=== PATIENT | female | born 1960 | race Two or more races ===

== ENCOUNTER 2022-04-28 14:32 | Outpatient (REF) | payer OTHER, SELFPAY ==
[2022-04-28 15:56] LABS: Thyroid Stimulating Hormone 1.24 uIU/mL (0.32-4.0)
[2022-04-28 16:07] LABS: Erythrocyte Sedimentation Rate 16 MM/HR (0-20)
[2022-04-29 22:28] LABS: Anti Nuclear Antibody Screen NEGATIVE (NEGATIVE)
== END 2022-04-28 14:33 | disposition home or self-care (01) ==
LOC: HO.LAB 14:32
PROVIDERS: Visit Provider Psychiatry & Neurology Neurology
DX: M79.7 Fibromyalgia (principal)
CPT/HCPCS: 36415; 82550; 84443; 85652; 86038; 86039

== ENCOUNTER → 2022-09-10 13:36 | Outpatient (BNVA) | payer OTHER, SELFPAY | PROVIDERS: PCP Internal Medicine; Visit Provider Dietitian, Registered | DX: E11.9 Type 2 diabetes mellitus without complications (principal) | CPT/HCPCS: 97802 ==

== ENCOUNTER → 2023-01-19 14:07 | Outpatient (BNVA) | payer OTHER, SELFPAY | PROVIDERS: PCP Internal Medicine; Visit Provider Dietitian, Registered | DX: E11.9 Type 2 diabetes mellitus without complications (principal) | CPT/HCPCS: 97803 ==

== ENCOUNTER 2024-09-13 13:42 | Outpatient (AMB) | payer OTHER, SELFPAY ==
[2024-09-13 13:59] VITALS: BP 142/82; PULSE 92; O2SAT 96; BMI 26.3
--- NOTE | 2024-09-13 13:59 | A.OFFVIS_ITS ---
Vital Signs 09/13/24 13:59 Height 5 ft Weight 134 lb 8 oz BMI 26.3 BP 142/82 H Blood Pressure Location Lt brachial Position Sitting Pulse 92 Pulse Source Pulse Oximeter Pulse Oximetry (%) 96 Oxygen Delivery Method Room Air Intake Visit Reasons: lupus, arthritis Intake Note: Patient presents for follow up on lupus and arthritis. Allergies acetaminophen [From Percocet] Allergy (Mild, Verified 09/13/24 14:01) Rash naproxen Allergy (Mild, Verified 09/13/24 14:01) bleeding oxycodone [From Percocet] Allergy (Mild, Verified 09/13/24 14:01) Rash HPI HPI lupus, arthritis: Details: She has intermittent pain. A few weeks ago she had increased pain all over. It has subsided and she feels well. She is denying fevers, fatigue, rashes, joint pain, dyspnea, pleurisy, urinary symptoms, joint swelling. [facility] Medical History (Updated 09/14/24 @ 16:00 by Shon Aguayo MD) T2DM (type 2 diabetes mellitus) Review of Systems Const All systems reviewed & are unremarkable except as noted in HPI and below Physical Exam Vital Signs: Last Vital Signs Pulse 92 09/13/24 13:59 BP 142/82 H 09/13/24 13:59 Pulse Ox 96 09/13/24 13:59 Oxygen Delivery Method Room Air 09/13/24 13:59 BMI result Body Mass Index 26.3 Const Other: General: Comfortable CVS: RRR Respiratory: clear to auscultation bilaterally. Good respiratory effort Skin: No lesions seen MSK: No tenderness of any joint. No synovitis. Good range of motion of upper extremities and lower extremities. Assessment & Plan Assessment & Plan (1) Systemic lupus erythematosus: Comment: Controlled on hydroxychloroquine 200 mg daily Code(s): M32.9 - Systemic lupus erythematosus, unspecified Category: Medical Qualifiers: Systemic lupus erythematosus type: unspecified Systemic lupus erythematosus organ involvement: unspecified Qualified Code(s): M32.9 - Systemic lupus erythematosus, unspecified Plan: Labs for disease and drug monitoring ordered Continue hydroxychloroquine 200 mg daily. I am requesting last eye exam for hydroxychloroquine surveillance Requesting [facility] Return to clinic in 3 months Orders: Orders Erythrocyte Sedimentation Rate 09/13/24 M32.9 - Systemic lupus erythematosus, unspecified Alanine Aminotransferase 09/13/24 Z79.60 - nursing home (current) use of unspecified immunomodulators and immunosuppressants Aspartate Amino Transferase 09/13/24 Z79.60 - nursing home (current) use of unspecified immunomodulators and immunosuppressants Complete Blood Count Auto Diff 09/13/24 Z79.60 - supervisor intermediates (current) use of unspecified immunomodulators and immunosuppressants Hepatitis B,C Profile 09/13/24 M32.9 - Systemic lupus erythematosus, unspecified Anti Extractable Nuclear Ag 09/13/24 M32.9 - Systemic lupus erythematosus, unspecified Complement C4 09/13/24 M32.9 - Systemic lupus erythematosus, unspecified UA w Microscopic 09/13/24 M32.9 - Systemic lupus erythematosus, unspecified C Reactive Protein 09/13/24 M32.9 - Systemic lupus erythematosus, unspecified Creatinine 09/13/24 Z79.60 - nursing home (current) use of unspecified immunomodulators and immunosuppressants T Spot TB 09/13/24 M32.9 - Systemic lupus erythematosus, unspecified Anti DNA DS Antibody 09/13/24 M32.9 - Systemic lupus erythematosus, unspecified MARTHA Reflex Titer and Pattern 09/13/24 M32.9 - Systemic lupus erythematosus, unspecified Complement C3 09/13/24 M32.9 - Systemic lupus erythematosus, unspecified Protein Creatinine Ratio, Ur 09/13/24 M32.9 - Systemic lupus erythematosus, unspecified Coding Level of Care Code Est Pt Level 4 (16952) Complex EM visit Add On G2211 Diagnoses Systemic lupus erythematosus, unspecified SLE type, unspecified organ involvement status M32.9 Systemic lupus erythematosus type: unspecified Systemic lupus erythematosus organ involvement: unspecified
== END 2024-09-13 14:45 | disposition home or self-care (01) ==
PROVIDERS: PCP Internal Medicine; Visit Provider Internal Medicine Rheumatology
DX: M32.9 Systemic lupus erythematosus, unspecified (principal)
CPT/HCPCS: 99214; G2211

== ENCOUNTER → 2024-09-13 13:42 | Outpatient (BNVA) | payer OTHER, SELFPAY | PROVIDERS: PCP Internal Medicine; Visit Provider Internal Medicine Rheumatology | DX: M32.9 Systemic lupus erythematosus, unspecified (principal) | CPT/HCPCS: 99212 ==

== ENCOUNTER 2024-09-19 09:27 | Outpatient (REF) | payer OTHER, SELFPAY ==
[2024-09-19 11:16] LABS: Appearance Urine Clear; Color Urine Yellow; Glucose Urine UA >=1000 mg/dL (Negative); Leukocyte Esterase Urine Negative (Negative); Nitrite Urine Negative (Negative); PH 5.5 (5.0-9.0); Specific Gravity - Urine >= 1.030 (1.005-1.025); UMIC TRIGGER UA YES; Urine Blood Negative (Negative); Urine Ketones Negative (Negative); Urine Protein Negative (Neg-Trace)
[2024-09-19 11:19] LABS: Bacteria Urine None Seen (None Seen); Hyaline Casts Urine 0-2 /LPF (0-2); RBC Urine 0-2 /HPF (0-2); Squamous Epithelial Cell Urine 0-2 /HPF (0-2); WBC Urine 0-5 /HPF (0-5)
[2024-09-19 11:33] LABS: MANUAL DIFF FLAG NO
[2024-09-19 11:37] LABS: Basophils Percent Auto 0.2 % (0-2); Eosinophils Absolute Auto 0.1 X10*3/uL (0.0-0.4); Hematocrit 38.1 % (37.0-47.0); Hemoglobin 13.8 g/dl (12.0-16.0); Imm Gran Abs Auto 0.01 X10*3/uL (0.00-0.03); Imm Gran Pct Auto 0.2 % (0.0-0.4); Lymphocytes Absolute Auto 1.3 X10*3/uL (1.2-4.9); Lymphocytes Percent Auto 25.9 % (20-40); Mean Corpuscular HGB Conc 36.2 g/dl (31.0-35.0); Mean Corpuscular Hemoglobin 29.3 pg (27.0-33.0); Mean Corpuscular Volume 80.9 fL (80.0-98.0); Mean Platelet Volume 12.2 fL (9.4-12.3); Monocytes Absolute Auto 0.3 X10*3/uL (0.1-1.2); Monocytes Percent Auto 6.2 % (2-11); Neutrophils Absolute Auto 3.4 x10*3/uL (2.0-8.3); Neutrophils Percent Auto 66.5 % (45-73); Platelet Count 105 X10*3/uL (160-400); Red Blood Count 4.71 X10*6/uL (4.20-5.50); Red Cell Distribution Width 12.4 % (11.0-16.0); White Blood Count 5.2 X10*3/uL (4.8-10.8)
[2024-09-19 11:53] LABS: Alanine Aminotransferase 35 U/L (0-31); Aspartate Amino Transferase 27 U/L (5-31); C Reactive Protein 0.33 mg/dL (< or = 0.50); Estimated Glomerular Filt Rate > 60
[2024-09-19 12:12] LABS: Total Protein Urine Random < 7 mg/dL (<12)
[2024-09-19 12:16] LABS: Erythrocyte Sedimentation Rate 16 MM/HR (0-20)
[2024-09-21 10:24] LABS: Anti Nuclear Antibody Screen NEGATIVE (NEGATIVE)
[2024-09-21 10:28] LABS: Complement C3 111 mg/dL (83-193)
[2024-09-21 14:46] LABS: HBS Num1 86.53 mIU/mL (0-7.99); HBc Num1 0.12 S/CO (0.00-0.79); HBsAGNum1 0.37 S/CO (0.00-0.99); Hepatitis B Core Antibody Nonreactive (Nonreactive); Hepatitis B Surface Antigen Negative (Negative); ~Hepatitis B Surface Antibody REACTIVE (Nonreactive); ~Hepatitis C Antibody Nonreactive (Nonreactive)
[2024-09-21 19:22] LABS: Anti DNA DS Antibody <1 IU/mL; SM/Ribonucleoprotein Ab <1.0 NEG AI (<1.0 NEG); Smith Protein <1.0 NEG AI (<1.0 NEG)
[2024-09-21 22:53] LABS: TS Negative Control Passed; TS Panel A 0; TS Panel B 0; TS Positive Control Passed; TSpotTB Negative (Negative)
== END 2024-09-19 09:28 | disposition home or self-care (01) ==
LOC: HO.10HDL 09:27
PROVIDERS: Visit Provider Internal Medicine Rheumatology
DX: M32.9 Systemic lupus erythematosus, unspecified (principal); Z79.60 Long term (current) use of unspecified immunomodulators and immunosuppressants
CPT/HCPCS: 36415; 81001; 82565; 82570; 84156; 84450; 84460; 85025; 85652; 86038; 86140; 86160; 86225; 86235; 86481; 86704; 86706; 86803; 87340

== ENCOUNTER 2024-12-07 13:20 | Outpatient (AMB) | payer OTHER, SELFPAY ==
--- NOTE | 2024-12-07 13:22 | A.OFFVIS_ITS ---
Vital Signs 12/07/24 13:23 Height 5 ft Weight 133 lb 6 oz BMI 26.0 BP 126/80 Blood Pressure Location Lt brachial Position Sitting Pulse 92 Pulse Source Pulse Oximeter Pulse Oximetry (%) 97 Oxygen Delivery Method Room Air Intake Visit Reasons: Follow Up 3mo Intake Note: Patient presents for follow up on lupus and arthritis. Allergies acetaminophen [From Percocet] Allergy (Mild, Verified 12/07/24 13:23) Rash naproxen Allergy (Mild, Verified 12/07/24 13:23) bleeding oxycodone [From Percocet] Allergy (Mild, Verified 12/07/24 13:23) Rash HPI HPI Follow Up 3mo: Details: She continues to have arthralgias in her hands and shoulders. Tolerable pain. Bruising easily She denies fevers, rash, dyspnea, pleurisy. Sometimes her finger tips turn red without pain or numbness. Resolves with putting hands in warm water. She sometimes has bubbles in her urine. Denies increase frequency, hematuria and dysuria. Sometimes she has pain in chest that radiates to back - chronic. It takes her breath away. Short lived. It may stay for a half a day. No association with food. She can wake up with it. She reports 3 years ago she had echocardiogram and nuclear stress test, which was normal. She has diarrhea. She has lost weight 8 lbs through eating healthier. [facility] Medical History T2DM (type 2 diabetes mellitus) Review of Systems Const All systems reviewed & are unremarkable except as noted in HPI and below Physical Exam Vital Signs: Last Vital Signs Pulse 92 12/07/24 13:23 BP 126/80 12/07/24 13:23 Pulse Ox 97 12/07/24 13:23 Oxygen Delivery Method Room Air 12/07/24 13:23 BMI result Body Mass Index 26.0 Const Other: General: Comfortable CVS: RRR Respiratory: clear to auscultation bilaterally. Good respiratory effort Skin: No lesions seen MSK: No tenderness of any joint. No synovitis. Normal range of motion of upper extremities and lower extremities. Assessment & Plan Assessment & Plan (1) Systemic lupus erythematosus: Comment: Controlled on hydroxychloroquine 200 mg daily. She is experiencing bruising. She has history of chronic thrombocytopenia likely due to ITP/SLE, which may be contributing. Thrombocytopenia has been stable. Rheumatology history: She was diagnosed with systemic lupus erythematosus in 2013, positive CORPORATE GENERAL MANAGER antibody, manifesting with chronic thrombocytopenia, malar rash, photosensitivity hair loss, and joint pain. Joint pain improved on hydroxychloroquine. Hydroxychloroquine 400 mg q.day cause headaches. She grace ins on hydroxychloroquine 200 mg daily since 2018. Code(s): M32.9 - Systemic lupus erythematosus, unspecified Category: Medical Qualifiers: Systemic lupus erythematosus organ involvement: unspecified Systemic lupus erythematosus type: unspecified Qualified Code(s): M32.9 - Systemic lupus erythematosus, unspecified Plan: Labs for disease and drug monitoring ordered Continue hydroxychloroquine 200 mg daily. I am requesting last eye exam for hydroxychloroquine surveillance 2nd request [facility] records [facility] PCP follow-up for intermittent chest pain evaluation Return to clinic in 3 months Orders: Orders Alanine Aminotransferase Today Z79.60 - rn long term care (current) use of unspecified immunomodulators and immunosuppressants Aspartate Amino Transferase Today Z79.60 - shelter (current) use of unspecified immunomodulators and immunosuppressants Sm Sm/[employer]POR[employer] GENERAL MANAGER Antibodies Today M32.9 - Systemic lupus erythematosus, unspecified Complement C3 Today M32.9 - Systemic lupus erythematosus, unspecified Complement C4 Today M32.9 - Systemic lupus erythematosus, unspecified C Reactive Protein Today Z79.899 - Other intermediate (current) drug therapy Complete Blood Count Auto Diff Today Z79.60 - shelter (current) use of unspecified immunomodulators and immunosuppressants Creatinine Today Z79.60 - shelter (current) use of unspecified immunomodulators and immunosuppressants MARTHA Reflex Titer and Pattern Today M32.9 - Systemic lupus erythematosus, unspecified Anti DNA DS Antibody Today M32.9 - Systemic lupus erythematosus, unspecified Erythrocyte Sedimentation Rate Today Z79.899 - Other rn long term care (current) drug therapy Medications: New hydroxychloroquine 200 mg PO DAILY 90 tabs 1RF Coding Level of Care Code Est Pt Level 4 (95498) Complex EM visit Add On G2211 Diagnoses Systemic lupus erythematosus, unspecified SLE type, unspecified organ involvement status M32.9 Systemic lupus erythematosus organ involvement: unspecified Systemic lupus erythematosus type: unspecified
[2024-12-07 13:23] VITALS: BP 126/80; PULSE 92; O2SAT 97; BMI 26.0
--- OUTSIDE RECORDS SUMMARY | 2024-12-07 16:55 | XMS_ITS | Clinical Summary ---
Author Organization [facility] Address [address] [place] [address] Care Team Providers Care Chiropractic Assistant Name Role Phone Ashwini Zhang MD Primary Care Provider [phone] Allergies Active Allergy Reactions Criticality Noted Date Comments Naproxen 03/14/2020 Oxycodone-Acetaminophen 03/14/2020 Medications Medication Sig Dispensed Refills Start Date End Date Status chloroquine (ARALEN) 250 MG tablet Take 250 mg by mouth daily. 0 Active metFORMIN (GLUCOPHAGE) tablet 500 mg Take 500 mg by mouth 2 (two) times a day with meals. 0 Active gabapentin (NEURONTIN) 300 MG capsule Take 1 capsule (300 mg total) by mouth every night at bedtime. 0 Active Active Problems Problem Noted Date Diagnosed Date Fibromyalgia 03/14/2020 History of Helicobacter pylori infection 020 Overview: Overview: Tx with a PrevPac Arthralgia of multiple sites 01/26/2020 Overview: Last Assessment & Plan: Joint protection, energy conservation. Gentle, regular exercise routine. Avoid falls, injuries, overuse. Keep body weight in ideal range for his height. She may benefit from topical cream such as Arnica, Biofreeze, Aspercreme versus medicated patches such as salonpas, icy hot patch 2-3 times daily and if necessary at bedtime x 3 weeks. Chronic fatigue 01/26/2020 Overview: Last Assessment & Plan: Balance rest and activity. Avoid sick contacts, falls, injuries. Well-balanced nutritionally diet. Proper hydration. Regular hobbies/favorite activities. Follow age-appropriate screenings and preventive strategies. Long-term use of Plaquenil 01/26/2020 Overview: Last Assessment & Plan: Take exactly as prescribed. Daily sun protection. Follow with stretcher leveler operator helper regularly-at least every 12 months. Raynaud's disease without gangrene 01/26/2020 Overview: Last Assessment & Plan: Keep warm, dress in layers. Optimize stress management strategies. Avoid vasoconstrictors in OTC products for cold/flu and sinus. Vitamin D deficiency 12/15/2017 Overview: Last Assessment & Plan: Continue weekly vitamin D supplementation as instructed to bring serum vitamin D to optimal level: 40-50 ng/mL. Diabetes mellitus type 2, uncomplicated 12/23/19 16 Constipation 02/12/2014 Thrombocytopenia 08/27/2012 Overview: Overview: Noted as early as 2008 ?etiology GERD (gastroesophageal reflux disease) 2 Depression 10/21/2011 History of renal stone 05/27/2009 Overview: Overview: Patient had a staghorn calculus on the right kidney and she is s/p urological surgery on 05/2009. Patient follow with Urology outside [facility] Social History Tobacco Use Types Packs/Day Years Used Date Smoking Tobacco: Never Smokeless Tobacco: Never Alcohol Use Standard Drinks/Week Comments No 0 (1 standard drink = 0.6 oz pur e alcohol) Sex and Gender Information Value Date Recorded Sex Assigned at Not on file Gender Identity Not on file Sexual Orientation Not on file Job Start Date Occupation Industry Not on file Not on file Not on file Last Filed Vital Signs Vital Sign Reading Time Taken Comments Blood Pressure 163/92 11/11/2023 1:55 PM EST Pulse 86 11/11/2023 1:55 PM EST Temperature 36.4 ??C (97.6 ??F) 11/11/2023 1:55 PM ES T Respiratory Rate - - Oxygen Saturation 100% 11/11/2023 1:55 PM EST Inhaled Oxygen Concentration - - Weight 61 kg (134 lb 6.4 oz) 11/11/2023 1:55 PM EST Height 154.9 cm (5' 1 ) 11/11/2023 1:55 PM EST Body Mass Index 25.39 11/11/2023 1:55 PM EST Plan of Treatment Health Maintenance Due Date Last Done Comments Hepatitis C Screening 1958 Depression Screening 1970 BMI Counseling 1976 Preventative Health Evaluation 1976 Colon Cancer Screening (Colonoscopy) 2003 Breast Cancer Screening (Mammogram) 2008 Pneumococcal Vaccine (2 of 2 - PPSV23 or PCV20) 12/20/2020 10/25/2020 DTap / Tdap / Td (2 - Td or Tdap) 07/16/2021 07/16/2011 Fall Risk Assessment 2023 Osteoporosis Screening (DEXA Scan) 2023 COVID-19 Vaccine ( season) 2024 08/29/2021, 01/03/2021 Influenza Vaccine (#1) 2024 , 07/03/2022, 10/26/2019, Additional history exists RSV Adult > 60+ Yrs or (1 - 1-dose 75+ series) 2033 Shingrix-Zoster Vaccine Completed 07/03/2022, 01/02 Hepatitis B Vaccines Aged Out No long er eligible based on patient's age to complete this topic RSV Ped < 20 months Aged Out No longe r eligible based on patient's age to complete this topic Care Teams Chiropractic Assistant Relationship Specialty Start Date End Date Ashwini Zhang MD PCP - General Internal Medicine 04/07/22
--- OUTSIDE RECORDS SUMMARY | 2024-12-07 16:55 | XMS_ITS | Clinical Summary ---
Author Organization [facility] Address [address] [place] [address] Phone Care Team Providers Care Learning Facilitator Name Role Phone Ashwini Zhang MD Primary Care Provider [phone] Allergies Active Allergy Reactions Criticality Noted Date Comments Naproxen 03/14/2020 Oxycodone-Acetaminophen 03/14/2020 Medications hydroxychloroqu ine (PLAQUENIL) 200 mg tablet Take 1 tablet (200 mg total) by mouth 1 (one) time each day. Active meclizine (ANTIVERT) 25 mg tablet Take 1 tablet (25 mg total) by mouth. at bedtime for 30 days 4 Active blood sugar diagnostic (FreeStyle Lite Strips) test strip USE TO CHECK FASTING BLOOD GLUCOSE EVERY MORNING BEFORE BREAKFAST 4 Active FreeStyle Lancets 28 gauge lancets USE TO CHECK FASTING BLOOD GLUCOSE EVERY MORNING BEFORE BREAKFAST 4 Active cholecalciferol (VITAMIN D-3) 50 mcg (2,000 unit) tablet Take 1 tablet (2,000 Units total) by mouth 1 (one) time each day. 4 Active amLODIPine (NORVASC) 5 mg tablet Take 1 tablet (5 mg total) by mouth 1 (one) time each day. 90 tablet 1 4 Active metFORMIN (GLUCOPHAGE) 500 mg tablet Take 1 tablet (500 mg total) by mouth 2 (two) times a day with meals. 90 tablet 1 4 Active omeprazole (PriLOSEC) [address] capsule Take 1 capsule (20 mg total) by mouth 1 (one) time each day before breakfast. 90 capsule 5 Active Active Problems Problem Noted Date Diagnosed Date Overweight (BMI 25.0-29.9) 09/01/2024 Hypertension 07/20/2024 Fibromyalgia 06/08/2024 Osteopenia 02/11/2024 Overview (09/01/2024): 02/17 T score spine -2.1 hip -2.0 FRAX score 6.1% 10 year fracture risk Cirrhosis 01/25/2023 Complex renal cyst 04/25/2021 Chronic fatigue 01/26/2020 Overview (06/08/2024): Last Assessment & Plan: Balance rest and activity. Avoid sick contacts, falls, injuries. Well-balanced nutritionally diet. Proper hydration. Regular hobbies/favorite activities. Follow age-appropriate screenings and preventive strategies. Raynaud's disease without gangrene 01/26/2020 Overview (06/08/2024): Last Assessment & Plan: Keep warm, dress in layers. Optimize stress management strategies. Avoid vasoconstrictors in OTC products for cold/flu and sinus. Vitamin D deficiency 12/15/2017 Hemorrhoids, internal, with bleeding 10/05/2016 Diabetes mellitus type 2, uncomplicated 12/23/19 16 SLE (systemic lupus erythematosus) 07/02/2015 Colon polyps 06/11/2014 Overview (09/01/2024): 06/11/14 c-scope Constipation 02/12/2014 UPJ obstruction, congenital 11/02/2013 Thrombocytopenia 08/27/2012 Overview (06/08/2024): Noted as early as 2008 ?etiology GERD (gastroesophageal reflux disease) 2 Depression 10/21/2011 Nephrolithiasis 05/27/2009 Overview (09/01/2024): Patient had a staghorn calculus on the right kidney and she is s/p urological surgery on 05/2009. Patient follow with Urology outside [facility] 08/29 bilateral nonobstructing stones Encounters Date Type Department Care Team Description 11/21/2024 2:15 PM EST Office Visit [facility] Hematology Oncology [address] [place] [id number] Shae Arenas DO Idiopathic thrombocytopenic purpura ([facility]/HCC) (Primary Dx) 09/15/2024 11:30 AM EST Office Visit Adult Medicine [address] [address] Elva Fagan PA Encounter for initial annual wellness visit (AWV) in Medicare patient (Primary Dx); Type 2 diabetes mellitus without complication, without long-term current use of insulin ([facility]); Vitamin D deficiency; Primary hypertension; Gastroesophageal reflux disease, unspecified whether esophagitis present; Systemic lupus erythematosus, unspecified SLE type, unspecified organ involvement status ([facility]); Osteopenia, unspecified location from Last 3 Months Immunizations Name Administration Dates Next Due Influenza Quadravalent, MDCK , 0.5ml, preservative free (Flucelvax) 6mo and older 07/03/2022,10/26/2019 Influenza Quadravalent, MDCK , 0.5ml, with preservative (Flucelvax) 6mo and older 07/07/2017 Influenza trivalent, 0.5mL, preservative free (Fluarix; FluLaval; Fluzone) ages 6mo and older (Afluria) 3 years and older 06/12/2024,06/14/2023,06/24/2018 Influenza trivalent, with pr eservative (Fluzone; Afluria) 6mo and older 07/02/2015,10/06/2012 [employer] SARS-CoV-2 COVID -19, vector-nr, rS-Ad26, preservative free 01/03/2021 PPD Test 03/08/2019,07/31/2015 Pfizer (ages 12 & older) Bivalent, COVID-19 05/28,06/24/2023 Pfizer SARS-CoV-2 COVID-19, mRNA, LNP-S, preservative free 08/29/2021 Pneumococcal conjugate 13 va lent (Prevnar 13, PCV13) 2mo and older 10/25/2020 Td Tetanus diptheria (Tdvax) 7yo and older 09/11 Tdap Tetanus diptheria acell ular pertussis (Boostrix; Adacel) 7yo and older 07/16/2011 Zoster recombinant (Shingrix ) 19yo and older 07/03/2022,01/02/2022 Surgical History Surgery Date Site/Laterality Comments CHOLECYSTECTOMY PROCEDURE: HISTORICAL CHOLECYSTECTOMY HYSTERECTOMY PROCEDURE: HISTORICAL HYSTERECTOMY; COMMENT: total COLONOSCOPY PROCEDURE: HISTORICAL COLONOSCOPY; COMMENT: normal in 2004 ESOPHAGOGASTRODUODENOSCOPY 01/11/2009 PROCEDURE: MA ESOPHAGOGASTRODUODENOSCOPY TRANSORAL DIAGNOSTIC; COMMENT: [facility] - normal COLONOSCOPY W/ POLYPECTOMY 06/11/2014 PROCEDURE: MA COLSC FLX W/RMVL OF TUMOR POLYP LESION SNARE TQ; COMMENT: several small polyps -> serrated and tubular adenomas MULTIPLE TOOTH EXTRACTIONS PROCEDURE: HISTORICAL DENTAL EXTRACTION BREAST BIOPSY Left PROCEDURE: BX BREAST; PERC NEEDLE CORE W/IMAG GUID; COMMENT: b9 COLONOSCOPY 02/2019 PROCEDURE: HISTORICAL COLONOSCOPY; COMMENT: repeat 5 years OTHER SURGICAL HISTORY 09/2022 Bilateral PROCEDURE: MAMMOGRAM, SCREENING, BOTH BREASTS OTHER SURGICAL HISTORY 01/2013 PROCEDURE: MA ENDOSCOPY UPPER SMALL INTESTINE; COMMENT: normal upper endoscopy Medical History Medical History Date Comments Fibromyalgia DX:Fibromyalgia Raynaud phenomenon DX:Raynaud ph enomenon H. pylori infection 2007 DX:H. pylori infection; COMMENT: Tx with a PrevPac GERD (gastroesophageal reflu x disease) 05/12/2012 DX:GERD (gastroesophageal re flux disease) Hemorrhoids, internal, with bleeding 10/05/2016 DX:Hemorrhoids, internal, with bleeding Kidney stone DX:Kidney stone Diabetes mellitus type 2, uncomplicated (CMS/HCC) 12/23/2015 DX:Diabetes mellitus type 2, uncomplicated (HCC) Abnormal mammogram 09/2020 DX:Abnormal m ammogram Leukopenia DX:Leukopenia Complex renal cyst 04/25/2021 DX:Complex re nal cyst Cirrhosis of liver (CMS/HCC) DX: Cirrhosis of liver (HCC) Portal hypertension (CMS/HCC) DX :Portal hypertension (HCC) Esophageal varices (CMS/HCC) DX: Esophageal varices (HCC) Cirrhosis (CMS/HCC) 01/25/2023 DX:Cirrhosis (HCC) Abdominal pain DX:Abdominal vesta n Osteopenia 02/11/2024 DX:Osteopenia; C OMMENT: 02/17 T score spine -2.1 hip -2.0 FRAX score 6.1% 10 year fracture risk Family History Medical History Relation Name Comments Other cancer Father on his back ? m elanoma- Other: Other Maternal Grandfather in his 80s ? cause Breast cancer Maternal Grandmother latera lity unknown Diabetes Mother arthritis Ovarian cancer Other niece Other: Other Paternal Grandfather no info rmation Other: Other Paternal Grandmother no info rmation Breast cancer Sister 50's bilateral with positive nodes Relation Name Status Comments Father Maternal Grandfather Maternal Grandmother Mother Other Paternal Grandfather Paternal Grandmother Sister 50's Alive Social History Tobacco Use Types Packs/Day Years Used Date Smoking Tobacco: Never Smokeless Tobacco: Never Tobacco Cessation:Counseling Given: Not Answered Alcohol Use Standard Drinks/Week Comments No 0 (1 standard drink = 0.6 oz pur e alcohol) Housing Instability Answer Date Recorde d Are you worried that in the next 2 months you may not have stable housing? No 09/15/2024 Food Access & Nutrition Answer Date Rec orded Do you have access to a vari ety of food including fruits and vegetables? No 09/15/2024 Health Literacy Answer Date Recorded How often do you need to hav e someone help you when you read instructions, pamphlets, or other written material from your doctor or pharmacy? Never 09/15/2024 Caregiver: How often do you need to have someone help you when you read instructions, pamphlets, or other written material from your doctor or pharmacy? Not on file 09/15/2024 Financial Risk Answer Date Recorded How hard is it for you to pa y for the very basics like food, housing, medical care, and air conditioning / heating? Not very hard 09/15/2024 Transportation Answer Date Recorded Has the lack of transportati on kept you from meetings, work, or from getting things needed for daily living? No Has the lack of transportati on kept you from medical appointments or from getting medications? No 09/15/2024 Social Isolation Answer Date Recorded How often do you feel lonely or isolated from th ose around you? Never 09/15/2024 Food Risk Answer Date Recorded Within the past 12 months we worried whether our food would run out before we got money to buy more. Never true 09/15/2024 Within the past 12 months th e food we bought just didn't last and we didn't have money to get more. Never true 09/15/2024 Dependent Care Answer Date Recorded Do you need help finding or paying for care for your loved ones. For example, summer child caregiver or elderly care for an older adult? No 09/15/2024 Education Answer Date Recorded Do you think completing more education or training, like finishing a GED, going to college, or learning a trade, would be helpful for you? No 09/15/2024 Employment and Income Answer Date Recor ded During the last four weeks, have you been actively looking for work? No 09/15/2024 Living Situation Answer Date Recorded What is your living situation? 1 11/16/2023 Comments No Sex and Gender Information Value Date Recorded Sex Assigned at Not on file Legal Sex Female 11:37 PM EST Gender Identity Not on file Sexual Orientation Not on file Obstetrics History Last Filed Vital Signs Vital Sign Reading Time Taken Comments Blood Pressure 152/81 11/21/2024 2:27 PM EST Pulse 82 11/21/2024 2:27 PM EST Temperature 36.8 ??C (98.2 ??F) 11/21/2024 2:27 PM ES T Respiratory Rate 16 09/15/2024 11:17 AM EST Oxygen Saturation 99% 11/21/2024 2:27 PM EST Inhaled Oxygen Concentration - - Weight 60.3 kg (133 lb) 11/21/2024 2:27 PM EST Height 152.4 cm (5') 11/21/2024 2:27 PM EST Body Mass Index 25.97 11/21/2024 2:27 PM EST Plan of Treatment Upcoming Encounters Date Type Department Care Team (Late st Contact Info) Description 02/01/2025 2:45 PM EDT Office Visit Adult Medicine [facility] [address] [place] [address] Ashwini Zhang MD [address] [place] [address] 04/27/2025 2:20 PM EDT Appointment Radiology Department - [id number] [place] [address] 11/20/2025 2:15 PM EST Office Visit [facility] Hematology Oncology [address] [place] [phone] Shae Arenas, DO [address] [place] [address] Health Maintenance Due Date Last Done Comments Diabetes: Annual Foot Exam 1968 Hepatitis A Vaccines (1 of 2 - Risk 2-dose series) 1977 Hepatitis B Vaccines (1 of 3 - Risk 3-dose series) 2018 RSV Immunization Patients 60+ Years Old (1 - Risk 60-74 years 1-dose series) 2018 Pneumococcal Vaccine: 50+ Years (2 of 2 - PPSV23) 12/20/2020 10/25/2020 Cholesterol Screening (Lipid Panel) 09/05/2022 Diabetes: Annual Urine Albumin-Creatinine Ratio (uACR) 09/09/2022 COVID-19 Vaccine ( season) 2024 06/12/2024, 06/24/2023, 08/29/2021, Additional history exists Diabetes: Annual Retina Eye Exam 12/27/2024 12/28/2023 Diabetes: Blood Sugar Control Test (HGBA1C) 02/26/2025 08/28/2024, 05/01/2024, 02/09/2020 Diabetes: Annual GFR (Glomerular Filtration Rate) 05/31/2025 05/31/2024, 05/01/2024, 03/13/2021, Additional history exists Hypertension/CHF/CAD Annual BMP Blood Test 05/31/2025 05/31/2024, 05/01/2024, 03/13/2021, Additional history exists Depression Screening 09/15/2025 09/15/2024 Falls Risk Assessment 09/15/2025 09/15/2024 Medicare Annual Wellness Visit 09/15/2025 09/15/2024 Social Influencers of Health Screening 09/15/2025 09/15/2024 Breast Cancer Screening 04/20/2026 04/20/20 24, 04/20/2024, 10/21/2022, Additional history exists Colorectal Cancer Screening: Colonoscopy 07/12/2029 07/12/2024 DTaP,Tdap,and Td Vaccines (3 - Td or Tdap) 09/11/2031 09/11/2021, 07/16/2011 Osteoporosis Screening (Bone Density Screening) 02/08/2034 02/09/2024, 02/09/2024 Hepatitis C Screening Addressed 04/08/2018 Overri dden with the intention of not completing the topic Zoster Vaccines Completed 07/03/2022, 01/02/2022 Influenza Vaccine Completed 06/12/2024, , 07/03/2022, Additional history exists HIB Vaccines Aged Out No longer eligi ble based on patient's age to complete this topic HPV Vaccines Aged Out No longer eligi ble based on patient's age to complete this topic IPV Vaccines Aged Out No longer eligi ble based on patient's age to complete this topic MMR Vaccines Aged Out No longer eligi ble based on patient's age to complete this topic Meningococcal ACWY Vaccine Aged Out N o longer eligible based on patient's age to complete this topic Meningococcal B Vacine Aged Out No lo nger eligible based on patient's age to complete this topic RSV Immunization Patients Under 20 months Aged Out No longer eligible based on patient's age to complete this topic Varicella Vaccines Aged Out No longer eligible based on patient's age to complete this topic Procedures Procedure Name Priority Date/Time Associated Diagnosis Comments CBC WITH AUTO DIFFERENTIAL Routine 11/16/2024 11:11 AM EST Anemia, unspecified CBC AND DIFFERENTIAL Routine 11/16/2024 11:11 AM EST Anemia, unspecified HEMOGLOBIN A1C Routine 08/28/2024 12:50 PM EST Diabetes mellitus type 2, uncomplicated (CMS/HCC) SCREENING MAMMOGRAPHY BI 2-VIEW BREAST INC CAD Routine 04/20/2024 2:37 PM EDT Encounter for screening mammogram for malignant neoplasm of breast DXA BONE DENSITY STUDY 1+ SITS AXIAL SKEL Routine 02/09/2024 11:23 AM EDT Asymptomatic menopausal state ANNUAL BMP BLOOD TEST Routine 03/13/2021 from Last 3 Months or Most Recently Relevant to Health Maintenance Results * (ABNORMAL) CBC auto differential (11/16/2024 11:11 AM EST) WBC 4.0(L) 4.8 - 10.8 K/mcL LAB HEMETOLOGY METHOD 11/16/2024 1:53 PM [facility] RBC 4.60 3.80 - 4.80 M/mcL LAB HEMETOLOGY METHOD 11/16/2024 1:53 PM [facility] Hemoglobin 13.5 11.5 - 16.0 g/dL LAB HEMETOLOGY METHOD 11/16/2024 1:53 PM [facility] Hematocrit 40.4 35.0 - 47.0 % LAB HEMETOLOGY METHOD 11/16/2024 1:53 PM [facility] MCV 87.3 79.0 - 98.0 FL LAB HEMETOLOGY METHOD 11/16/2024 1:53 PM [facility] MCH 29.2 27.0 - 32.0 pcg LAB HEMETOLOGY METHOD 11/16/2024 1:53 PM [facility] MCHC 33.4 32.0 - 37.0 g/dL LAB HEMETOLOGY METHOD 11/16/2024 1:53 PM [facility] RDW 12.9 11.0 - 15.0 % LAB HEMETOLOGY METHOD 11/16/2024 1:53 PM [facility] Platelets 80(L) 130 - 400 K/mcL LAB HEMETOLOGY METHOD 11/16/2024 1:53 PM [facility] Comment:reviewed by slide MPV 13.3(H) 7.0 - 11.0 FL LAB HEMETOLOGY METHOD 11/16/2024 1:53 PM [facility] NRBC 0.0 <1.0 % LAB HEMETOLOGY METHOD 11/16/2024 1:53 PM [facility] NRBC Absolute 0.00 <0.10 K/mcL LAB HEMETOLOGY METHOD 11/16/2024 1:53 PM [facility] Neutrophils Relative 66.3 % LAB HEMETOLOGY METHOD 11/16/2024 1:53 PM [facility] Lymphocytes Relative 26.6 % LAB HEMETOLOGY METHOD 11/16/2024 1:53 PM [facility] Monocytes Relative 6.0 % LAB HEMETOLOGY METHOD 11/16/2024 1:53 PM [facility] Eosinophils Relative 0.7 % LAB HEMETOLOGY METHOD 11/16/2024 1:53 PM [facility] Basophils Relative 0.2 % LAB HEMETOLOGY METHOD 11/16/2024 1:53 PM [facility] Immature Granulocytes Relative 0.2 % LAB HEMETOLOGY METHOD 11/16/2024 1:53 PM [facility] Neutrophils Absolute 2.67 1.50 - 7.00 K/mcL LAB HEMETOLOGY METHOD 11/16/2024 1:53 PM [facility] Lymphocytes Absolute 1.07 1.00 - 5.00 K/mcL LAB HEMETOLOGY METHOD 11/16/2024 1:53 PM [facility] Monocytes Absolute 0.24 0.20 - 1.00 K/mcL LAB HEMETOLOGY METHOD 11/16/2024 1:53 PM [facility] Eosinophils Absolute 0.03 0.00 - 0.50 K/mcL LAB HEMETOLOGY METHOD 11/16/2024 1:53 PM [facility] Basophils Absolute 0.01 0.00 - 0.20 K/[facility] LAB HEMETOLOGY METHOD 11/16/2024 1:53 PM EST [facility] Immature Granulocytes Absolute 0.01 0.00 - 0.03 K/[facility] LAB HEMETOLOGY METHOD 11/16/2024 1:53 PM EST [facility] Blood Venous blood specimen / Unknown Venipuncture / Unknown 11/16/2024 11:11 AM EST 11/16/2024 12:17 PM EST Shae Arenas DO LAB BLOOD ORDERABLES Final Result Performing Organization Address [facility]/ZIP Co de Phone Number [facility] [address] [place] [address], [place] [phone] * (ABNORMAL) Hemoglobin A1c (08/28/2024 12:50 PM EST) Hemoglobin A1C 6.6(H) <6.5 % LAB CHEMISTRY METHOD 08/28/2024 7:00 PM EST [facility] Mean Bld Glu Estim. 143 mg/dL LAB CHEMISTRY METHOD 08/28/2024 7:00 PM EST [facility] Blood Venous blood specimen / Unknown Venipuncture / Unknown 08/28/2024 12:50 PM EST 08/28/2024 12:50 PM EST Ashwini Zhang MD LAB BLOOD ORDERABLES Final Resul t [facility] [address] [place] [address], [place] [phone] * SCREENING MAMMOGRAPHY BI 2-VIEW BREAST INC CAD (04/20/2024 2:37 PM EDT) Anatomical Region Laterality Modality Radiographic Marysol ging 10/21/2022 1:16 PM EST Narrative 04/21/2024 2:41 PM EDT This is a summary report. The complete report is available in the patient's medical record. If you cannot access the medical record, please contact the sending organization for a detailed fax or copy. Exam: Screening mammogram Findings: Digital bilateral full-field screening mammography is performed with tomosynthesis and interpreted with the aid of computer-aided detection. ??Comparison is made with 10/21/2022 and 10/17/2021. ?? Breast parenchyma is heterogeneously dense, which may obscure small masses. ??No new suspicious mass, architectural distortion, or suspicious calcifications. Impression: No mammographic evidence of malignancy. BI-RADS 1 - negative Procedure Note Edith Marcos MD - 07/12/2024 This is a summary report. The complete report is available in thepatient's medical record. If you cannot access the medical record, pleasecontact the sending organization for a detailed fax or copy. Exam: Screening mammogram Findings: Digital bilateral full-field screening mammography is performedwith tomosynthesis and interpreted with the aid of computer-aideddetection. Comparison is made with 10/21/2022 and 10/17/2021. Breast parenchyma is heterogeneously dense, which may obscure smallmasses. No new suspicious mass, architectural distortion, or suspiciouscalcifications. Impression: No mammographic evidence of malignancy. BI-RADS 1 - negative us Ashwini Zhang MD IMG XR PROCEDURES Final Result * DXA BONE DENSITY STUDY 1+ [facility] (02/09/2024 11:23 AM EDT) Anatomical Region Laterality Modality Bone Densitometr y 12/29/2023 9:02 AM EDT Narrative 02/10/2024 11:46 AM EDT Clinical history: menopausal/postmenopausal disorder Scans of the lumbar spine and hips were performed on a [employer] fan beam bone densitometer. ? Bone mineral density measurements and associated T and Z scores respectively are as follows: Lumbar Spine: L1-L4 BMD: 0.821 g/cm2 ? T-Score: -2.1 ? Z-Score: -0.3 Left Proximal Femur: Neck BMD: 0.623 g/cm2 ? T-Score: -2.0 ?? Z-Score: -0.7 Total BMD: 0.723 g/cm2 ? T-Score: -1.8 ?Z-Score: -0.7 Compared with standards for the young adult, lowest measured bone density places the patient in the W.H.O. osteopenic range. FRAX 10 year probability of major osteoporotic fracture: 6.1% FRAX 10 year probability of hip fracture: 0.9% Population: [place] () IMPRESSION: IMPRESSION: Osteopenia. The NOF guidelines recommend that FDA approved medical therapies be considered in postmenopausal women and men age >50 years with a: i. Hip or vertebral (clinical or morphometric) fracture ii. T score of < -2.5 at the spine or hip iii. 10 year fracture probability by FRAX of >3% for hip fracture, or >20% for major osteoporotic fracture PLEASE NOTE: ?? W.H.O. classification is based on lowest measured density at the spine, femoral neck, or total hip.This classification has prognostic significance when applied to post menopausal women and older men. 1) ??The World Health Organization defines low BMD as follows: ?T-score ? Normal ? at or > -1 Osteopenia ? < -1 and ??> - 2.5 Osteoporosis ? at or < -2.5 without fractures Established osteoporosis ? < -2.5 with fractures Procedure Note Rip Eldridge MD - 05/15/2024 Clinical history: menopausal/postmenopausal disorder Scans of the lumbar spine and hips were performed on a [employer] beam bone densitometer. Bone mineral density measurements and associated T and Z scoresrespectively are as follows: Lumbar Spine: L1-L4 BMD: 0.821 g/cm2 T-Score: -2.1 Z-Score: -0.3 Left Proximal Femur: Neck BMD: 0.623 g/cm2 T-Score: -2.0 Z-Score: -0.7 Total BMD: 0.723 g/cm2 T-Score: -1.8 Z-Score: -0.7 Compared with standards for the young adult, lowest measured bone densityplaces the patient in the W.H.O. osteopenic range. FRAX 10 year probability of major osteoporotic fracture: 6.1% FRAX 10 year probability of hip fracture: 0.9% Population: [place] () IMPRESSION: IMPRESSION: Osteopenia. The NOF guidelines recommend that FDA approved medical therapies beconsidered in postmenopausal women and men age >50 years with a: i. Hip or vertebral (clinical or morphometric) fracture ii. T score of < -2.5 at the spine or hip iii. 10 year fracture probability by FRAX of >3% for hip fracture, or >20%for major osteoporotic fracture PLEASE NOTE: W.H.O. classification is based on lowest measured density at the spine,femoral neck, or total hip.This classification has prognostic significance when applied to postmenopausal women and older men. 1) The World Health Organization defines low BMD as follows: T-score Normal at or > -1 Osteopenia < -1 and > -2.5 Osteoporosis at or < -2.5 withoutfractures Established osteoporosis < -2.5 with fractures Ashwini Zhang MD IMG DXA PROCEDURES Final Result * Annual BMP Blood Test (03/13/2021) [facility] Annual BMP Blood Test Abstracted Historical Provider HEALTH MAINTENANCE Final Result from Last 3 Months or Most Recently Relevant to Health Maintenance Insurance [facility] MEDICARE Member Subscriber Plan / Payer (Ef fective 2023-Present) Name:Venus Estrada Relation to Subscriber:Self Name:Venus Estrada Payer ID:[id number] Group ID:[id number] Type:Not on file Address: [address] [place] [address] [facility] Member Subscriber Plan / Payer (Ef fective 2023-Present) Name:Venus Estrada Relation to Subscriber:Self Name:Venus Estrada Payer ID:[id number] Group ID:[id number] Type:Not on file Address: [address] [place] [address] Advance Directives Documents on File Type Date Recorded Patient Skate Hop Expl anation Health Care Decision (hx) 01/27/2023 HE ALTH CARE PROXY Health Care Decision (hx) 01/27/2023 HE ALTH CARE PROXY Health Care Decision (hx) 01/27/2023 HE ALTH CARE PROXY Health Care Decision (hx) 01/27/2023 HE ALTH CARE PROXY Health Care Decision (hx) 03/24/2019 AD STRATTON DIRECTIVE Health Care Decision (hx) 03/24/2019 AD STRATTON DIRECTIVE Health Care Decision (hx) 03/24/2019 AD STRATTON DIRECTIVE Health Care Decision (hx) 03/24/2019 AD STRATTON DIRECTIVE Health Care Decision (hx) 03/24/2019 AD STRATTON DIRECTIVE Health Care Decision (hx) 03/24/2019 AD STRATTON DIRECTIVE Health Care Decision (hx) 03/24/2019 AD STRATTON DIRECTIVE Health Care Decision (hx) 03/24/2019 AD STRATTON DIRECTIVE Health Care Decision (hx) 03/24/2019 AD STRATTON DIRECTIVE Health Care Decision (hx) 03/24/2019 AD STRATTON DIRECTIVE Health Care Decision (hx) 03/24/2019 AD STRATTON DIRECTIVE Health Care Decision (hx) 03/24/2019 AD STRATTON DIRECTIVE Health Care Decision (hx) 03/20/2019 AD STRATTON DIRECTIVE Health Care Decision (hx) 03/20/2019 AD STRATTON DIRECTIVE Health Care Decision (hx) 03/20/2019 AD STRATTON DIRECTIVE Health Care Decision (hx) 03/20/2019 AD STRATTON DIRECTIVE Health Care Decision (hx) 03/20/2019 AD STRATTON DIRECTIVE Health Care Decision (hx) 03/20/2019 AD STRATTON DIRECTIVE Health Care Decision (hx) 03/20/2019 AD STRATTON DIRECTIVE Health Care Decision (hx) 03/20/2019 AD STRATTON DIRECTIVE Health Care Decision (hx) 03/20/2019 AD STRATTON DIRECTIVE Health Care Decision (hx) 03/20/2019 AD STRATTON DIRECTIVE Health Care Decision (hx) 03/20/2019 AD STRATTON DIRECTIVE Health Care Decision (hx) 03/20/2019 AD STRATTON DIRECTIVE Care Teams Learning Facilitator Relationship Specialty Start Date End Date Ashwini Zhang MD [address] [place] [id number] PCP - General Internal Medicine 03/06/21
--- OUTSIDE RECORDS SUMMARY | 2024-12-07 16:55 | XMS_ITS | Data Portability ---
Author Organization [employer] [facility] [place] Address [address] [place] [phone] Care Team Providers Care Research Biologist Name Role Phone HIM CCA OTHER Assessment Encounter Date Assessment Date Assessment LastModified by Organization Details LastModified Time 09/11/2024 09/11/2024 I provided real -time medical direction via phone for this encounter and was available for additional phone-based assistance as needed. I have reviewed and agree with the Assessment and Plan as documented by the Plush Finisher. Patient given the opportunity to ask questions. Our service contacted for an assessment of: Hypertension As per above, patient with the recent changes to blood pressure medications. Apparently she was not taking her amlodipine as prescribed and so medications were readjusted. The patient is unclear of her medication regimen. She was told to take her blood pressure several times a day and she has follow-up with her PCP on Wednesday. She denies headaches, chest pain, shortness of breath, dyspnea on exertion. She feels well she is sleeping well. She has no complaint for us. She wanted to check her blood pressure cuff readings with the scoreboard operator on the scene. Per scoreboard operator on the scene, diastolic elevated and patient's blood pressures were reviewed. She has had a few readings as high as 170 but mostly been in the 140 to 160 range. Diastolics fairly consistently between 85 and 95. Patient is asymptomatic. Impression: Essential hypertension Plan: Follow-up encourage with PCP on Wednesday. Patient to take her log which does appear to be fairly accurate. Red flags discussed as to when to seek a higher level of care. Patient agreement with follow-up plan. Allergies: Reviewed PCP f/u: We discussed the diagnostic uncertainty of home visits and the risk associated with this. In this case, the patient and I felt this to be an acceptable and reasonable amount of risk given the benefit of avoiding an ED visit. We discussed the need to seek care urgently/emerge ntly in the setting of any new or worsening serious symptoms, particularly fever chills [email or web address] Not available 09/11/2024 18:18:18 Plan of Treatment Reminders Order Date Submit Date Provider Last Modified By Organization Details Last Modified Time Details Appointments None record ed. Lab None record ed. Referral None record ed. Procedures None record ed. Surgeries None record ed. Imaging None record ed. Medication Orders None record ed. Patient TargetsNo targets recorded. Patient InstructionsNo instructions recorded. Reason for Referral None Reported. Medical Equipment None Reported. Allergies Allergen ID Allergen Name Allergen Category Reaction Reaction Severity Criticality Documentation Date Start Date Code Code System Note Provider Name and Address Organization Details Recorded Time 91561 acetamino phen / oxycodone medicatio n Not available Not available Not available 09/11/2024 54007 3 RxNorm Not Available [employer] 4 14:06:15 62916 naproxen medicatio n Not available Not available Not available 09/11/2024 7258 RxNorm Not Available [employer] [facility] 4 14:06:15 Medications Name Sig Start Date Stop Date Status Note LastModified by Organization Details LastModified Time metformin 500 mg tablet TAKE 2 TABLETS BY MOUTH EVERY MORNING AND TAKE 1 TABLET BY MOUTH EVERY EVENING active Not Available Not Available No t Available FreeStyle Lancets 28 gauge USE TO CHECK FASTING BLOOD GLUCOSE EVERY MORNING BEFORE BREAKFAST active Not Available Not Available No t Available amlodipine 5 mg tablet TAKE 1 TABLET BY MOUTH DAILY active Not Available Not Available No t Available meclizine 25 mg tablet TAKE 1 TABLET BY MOUTH AT BEDTIME FOR 30 DAYS active Not Available Not Available No t Available omeprazole 20 mg capsule,delay ed release TAKE 1 CAPSULE BY MOUTH EVERY MORNING BEFORE BREAKFAST active Not Available Not Available No t Available hydroxychloro quine 200 mg tablet TAKE 1 TABLET ONCE A DAY active Not Available Not Available N ot Available FreeStyle Lite Strips USE TO CHECK FASTING BLOOD GLUCOSE EVERY MORNING BEFORE BREAKFAST active Not Available Not Available No t Available cholecalcifer ol (vitamin D3) 50 mcg (2,000 unit) tablet TAKE 1 TABLET BY MOUTH DAILY active Not Available Not Available No t Available GaviLyte-G 236 gram-22.74 gram-6.74 gram-5.86 gram oral solution STARTING AT 6 PM THE NIGHT BEFORE PROCEDURE DRINK 8OZ GLASSES AT OWN PACE UNTIL DONE/RECTA L RUNS CLEAR. active Not Available Not Available No t Available BinaxNOW COVID-19 Ag Self Test kit TEST DIRECTED TODAY active Not Available Not Available No t Available Vitals Date Recorded Heart rate Oxygen saturation Oxygen saturation in Arterial blood by Pulse oximetry Body height Respiratory rate Body temperature Body weight Systolic blood pressure Diastolic blood pressure Provider Name and Address Organization Details Last Updated DateTime 4 104 /min 99 % 99 % 152.4 cm 16 /min 98.4 [degF] 79631.9 2 g 154 mm[Hg] 94 mm[Hg] Not Available [facility] - production 4 18:15:49 Social History None recorded. Functional Status None recorded. Mental Status None recorded. Family History Nothing Reported. Medical History No medical history recorded. Gynecological HistoryNo gynecological history recorded. Obstetrics History GPAL:G 0 P 0 0 0 0 Past Encounters Encounter ID Performer Location Encounter Start Date Encounter Closed Date Diagnosis/Indication Diagnosis SNOMED-CT Code Diagnosis ICD10 Code Diagnosis Note [id number] Amy Timmons MD [facility] [address] [place] [phone] 09/11/2024 18:15:47 09/11/2024 21:15:07 Essential hypertension 15241067 I10 Health Concerns Section Related Observation LastModified by Organization Detai ls LastModified Time None Recorded Concern Status LastModified by Organization Details LastModified Time None Recorded Advance Directives Directive None Recorded Payers Encounter Date Sequence Insurance Name Policy Number Policy Leiva Covered Member ID Leiva Member ID Guarantor Name 09/11/2024 1 [facility] - DOS ON OR AFTER 2022 - DUAL ELIGIBLE - [employer] OPTIONS AND ONE CARE (MEDICARE REPLACEMENT/ADV ANTAGE - HMO) Venus Estrada [id number] Venus Estrada Notes Date Note Type Note Provider Name and Address Organization Details Recorded Time 09/11/2024 text/html [facility] Nurse Triage Notes (Jackie Rojas - RN): Reason For Request: Patient is having Blood Pressure problems and wants checked out. Last bp reading was 103/105. Patient also. Patient also has pain in her bones, and a head ache, and feels weak. Patient Reports: Shortness of Breath Denies: History of Heart Attack, in the setting of active chest pain Active Chest pain, radiates to neck jaw and or arm Diaphoretic/Sweati ng Describes as ? c rushing? Sudden onset of nausea/Vomiting and shortness of breath. Unable to speak in full sentences without distress Palpitations, feeling dizzy Chest pain, increased fatigue Chief Complaints: Hypotension PMH: Hypertension, Thrombocytopenia, Cirrhosis Comments: Marriage And Family Teacher verified the name//address and phone number. Call completed with manager pharmacy > Pt calling for high BP . Per pt she normally has a BP of 107/64 , diastolic is higher than baseline. She went to the ER due to this in the past. Per her PCP she was not taking her BP meds correctly. She was given mag and amlodipine. Per the, she has been taking the medication. She has a GREEN and inflammation in her ears. She did have some mild sob yesterday . She denies any chest pain , has mild sob , but denies any nausea or vomiting. When she takes her medication she feels better but then the GREEN will come back. She has not been eating well but has been drinking normally. She denies any dizziness. PMH pre diabetic Education provided on the response time and the Patient was advised to monitor reported s/s and seek emergency treatment if needed .................. .................. .................. .................. .................. .................. .................. ............... Plush Finisher Note From Luis Manning: [facility] visit for female pt. Pt presents complaining of high blood pressure readings on her home machine. Pt has had occasional headaches but no other symptoms reported. Pt recently switched on to amlodipine for HTN. Follow up scheduled for 4 days from now. V/S taken as listed with hypertension noted. Pt afebrile. Lung sounds clear bilaterally. [place] [facility] [place] who advised no treatments needed at this time. Reviewed red flags for ED. Pt education provided. .................. .................. .................. .................. .................. .................. .................. ............... [facility] [place] [place]: Amy Timmons .................. .................. .................. .................. .................. .................. .................. ............... Disposition: Fulfilled Amy Timmons MD [address] [facility] [facility], [place], [phone], [employer] 09/11/2024 18:18:27 OBGyn Episode No OBEpisode recorded.
--- OUTSIDE RECORDS SUMMARY | 2024-12-07 16:55 | XMS_ITS | Encounter Summary ---
Author Organization [facility] Address [address] [place] [address] Care Team Providers Care Crystal Lapper Name Role Phone Ashwini Zhang MD Primary Care Provider [phone] Reason for Visit * Reason Comments Follow-up Encounter Details Date Type Department Care Team (Latest Contact Info) Description 11/21/2024 2:15 PM EST Office Visit [facility] Hematology Oncology [address] [place] [phone] Shae Arenas, DO [address] [place] [address] Idiopathic thrombocytopenic purpura (CMS/HCC) (Primary Dx) Social History Tobacco Use Types Packs/Day Years [...] care for your loved ones. For example, children's aide or elderly care for an older adult? [...] on file Sexual Orientation Not on file documented as of this encounter Last Filed Vital Signs Vital Sign Reading Time Taken Comments Blood Pressure 152/81 11/21/2024 2:27 PM EST Pulse 82 11/21/2024 2:27 PM EST Temperature 36.8 ??C (98.2 ??F) 11/21/2024 2:27 PM ES T Respiratory Rate - - Oxygen Saturation 99% 11/21/2024 2:27 PM EST Inhaled Oxygen Concentration - - Weight 60.3 kg (133 lb) 11/21/2024 2:27 PM EST Height 152.4 cm (5') 11/21/2024 2:27 PM EST Body Mass Index 25.97 11/21/2024 2:27 PM EST documented in this encounter Progress Notes * Shae Arenas, DO - 11/21/2024 2:15 PM EST Hematology/Oncology Progress Note 11/21/24 Subjective Patient identifier: 64 yo F with history of SLE with chronic thrombocytopenia Interim history: Venus presents today for follow up She denies any epistaxis, gingival bleeding, hematuria, vaginal bleeding. She reports ongoing joint aches that are intermittent. She does note occasional soft stools. No black or bloody stool. Says she had colonoscopy last year. Also noted to have hypertension and was started on hypertensive medication, but she says she only takes it sporadically. Had some vertigo, given meclizine which helps. Constitutional: see above. HEENT: No dysphagia. Resp/CV: No cough, shortness of breath, chest pain GI: No nausea, vomiting, diarrhea, abdominal pain, Skin: No rashes Neuro: No headaches, dizziness, neuropathy Musculoskeletal: No bone pain, no joint pain. Hem/Lymph : No palpable lymph nodes, no bleeding or easy bruising Hematologic history Longstanding history of rheumatologic disorder current therapy includes Plaquenil. Platelet count chronically 80,000-100,000 with no noted bleeding difficulties previously described. Patient has beenfollowed by and then Dr Huston. Platelet count of 80,000 dates back 10 years. 05/10/2012 platelet count was 85,000 Labs from 04/03/2022 WBC 4.6 platelet 80,000 hemoglobin 14.4 creatinine 0.71 LFTs She has never required steroid or any treatment of her thrombocytopenia. Objective Vitals: 11/21/24 1427 BP: (!) 152/81 Pulse: 82 Temp: 36.8 ??C (98.2 ??F) SpO2: 99% General: well appearing female in NAD HENT: no scleral icterus Lymph: No palpable cervical, supraclavicular or axillary adenopathy. Resp: clear to auscultation bilaterally, Cardio: regular rate and rhythm, Abdomen: soft non tender, normal bowel sounds Neuro: alert and oriented, normal speech Medications Current Outpatient Medications: amLODIPine (NORVASC) 5 mg tablet, Take 1 tablet (5 mg total) by mouth 1 (one) time each day., Disp:90 tablet, Rfl: 1 cholecalciferol (VITAMIN D-3) 50 mcg (2,000 unit) tablet, Take 1 tablet (2,000 Units total) by mouth 1 (one) time each day., Disp: , Rfl: hydroxychloroquine (PLAQUENIL) 200 mg tablet, Take 1 tablet (200 mg total) by mouth 1 (one) time each day., Disp: , Rfl: meclizine (ANTIVERT) 25 mg tablet, Take 1 tablet (25 mg total) by mouth. at bedtime for 30 days, Disp: , Rfl: metFORMIN (GLUCOPHAGE) 500 mg tablet, Take 1 tablet (500 mg total) by mouth 2 (two) times a day with meals., Disp: 90 tablet, Rfl: 1 omeprazole (PriLOSEC) [address] capsule, Take 1 capsule (20 mg total) by mouth 1 (one) time each daybefore breakfast., Disp: 90 capsule, Rfl: 0 blood sugar diagnostic (FreeStyle Lite Strips) test strip, USE TO CHECK FASTING BLOOD GLUCOSE EVERYMORNING BEFORE BREAKFAST, Disp: , Rfl: FreeStyle Lancets 28 gauge lancets, USE TO CHECK FASTING BLOOD GLUCOSE EVERY MORNING BEFORE BREAKFAST, Disp: , Rfl: Allergies Allergen Reactions Naproxen Oxycodone-Acetaminophen Past medical history, past surgical history, and family history reviewed. Medical history No past medical history on file. Surgical history No past surgical history on file. Family history No family history on file. Social history [place] Labs: Relevant data reviewed. Lab Results Component Value Date WBC 4.0 (L) 11/16/2024 RBC 4.60 11/16/2024 HGB 13.5 11/16/2024 HCT 40.4 11/16/2024 MCV 87.3 11/16/2024 MCHC 33.4 11/16/2024 RDW 12.9 11/16/2024 PLT 80 (L) 11/16/2024 MPV 13.3 (H) 11/16/2024 NRBC 0.0 11/16/2024 DIFF Lab Results Component Value Date LYMPHOPCT 26.6 11/16/2024 NEUTROABS 2.67 11/16/2024 LYMPHSABS 1.07 11/16/2024 MONOABS 0.24 11/16/2024 EOSABS 0.03 11/16/2024 BASOSABS 0.01 11/16/2024 IMMGRANABS 0.01 11/16/2024 Assessment & Plan 64-year-old female with a longstanding history of thrombocytopenia presents today for follow-up. Itis felt likely she has ITP. Peripheral smear shows platelets normal appearing, decreased in number with CBC showing elevated MPV in the setting of lupus this goes along with immune thrombocytopenia. For nine years now, platelets in 80K range with no bleeding complications. Mild low WBC but this has also been intermittent and she is on plaquenil. Thrombocytopenia , likely ITP Continue to monitor on active surveillance (as per DARINEL guidelines, in adult patients with ITP if platelet count remains > 30 and patient is asymptomatic, steroids initiation is not recommended) Discussed option of bone marrow now or in future if her counts worsen, she opts to hold off for nowgiven she is feeling well, which is reasonable Return here in one year, she has labs done in between with PCP and rheumatology. Return sooner with any new systemic symptoms or bleeding issues Shae Arenas DO documented in this encounter Plan of Treatment Upcoming Encounters Date Type Department Care Team (Late st Contact Info) Description 02/01/2025 2:45 PM EDT Office Visit [facility] - [address] [phone] Ashwini Zhang MD [address] [place] [address] 04/27/2025 2:20 PM EDT Appointment Radiology Department - [address] [phone] 11/20/2025 2:15 PM EST Office Visit [facility] Hematology Oncology [address] [place] [phone] Shae Arenas, [address] [place] [address] Scheduled Orders Name Type Priority Associated Diagnoses Orde r Schedule CBC and differential Lab Routine Idiopathic thrombocytopenic purpura (CMS/HCC) Expected: 11/21/2025, Expires: 11/21/2025 documented as of this encounter Visit Diagnoses Diagnosis Idiopathic thrombocytopenic purpura (CMS/HCC)- Primary Immune thrombocytopenic purpura Encounter for screening mammogram for breast cancer documented in this encounter Additional Health Concerns Assessment Noted Time PHQ-9 Depression Total Score: 1 09/15/20 24 11:12 AM EST documented as of this encounter Care Teams Crystal Lapper Relationship Specialty Start Date End Date Ashwini Zhang MD [address] [place] [address] PCP - General Internal Medicine 03/06/21 documented as of this encounter
== END 2024-12-07 13:49 | disposition home or self-care (01) ==
LOC: HO.RHES 13:21
PROVIDERS: PCP Internal Medicine; Visit Provider Internal Medicine Rheumatology
DX: M32.9 Systemic lupus erythematosus, unspecified (principal)
CPT/HCPCS: 99214; G2211

== ENCOUNTER 2024-12-07 13:20 | Outpatient (REF) | payer OTHER, SELFPAY ==
--- OUTSIDE RECORDS SUMMARY | 2024-12-07 17:39 | XMS_ITS | Clinical Summary ---
Author Organization [facility] Address [address] [place] [address] Phone Care Team Providers Care Automobile Taillight Assembler Name Role Phone Ashwini Zhang MD Primary Care Provider [phone] Allergies Active Allergy Reactions Criticality Noted Date [...] on 05/2009. Patient follow with Urology outside [facility] 08/29 bilateral nonobstructing stones Encounters Date Type Department Care Team Description 11/21/2024 2:15 PM EST Office Visit [facility] Hematology Oncology [address] [place] [phone] Shae Arenas DO Idiopathic thrombocytopenic purpura ([facility]/HCC) (Primary Dx) 09/15/2024 11:30 AM EST Office Visit Adult Medicine [address] [address] Elva Fagan PA Encounter for initial annual wellness visit (AWV) in Medicare patient (Primary Dx); Type 2 diabetes mellitus without complication, without long-term current use of insulin ([facility]); Vitamin D deficiency; Primary hypertension; Gastroesophageal reflux disease, unspecified whether esophagitis present; Systemic lupus erythematosus, unspecified SLE type, unspecified organ involvement status ([facility]); Osteopenia, unspecified location from Last 3 Months [...] eservative (Fluzone; Afluria) 6mo and older 07/02/2015,10/06/2012 [employer] SARS-CoV-2 COVID -19, vector-nr, rS-Ad26, preservative free [...] COMMENT: normal in 2004 ESOPHAGOGASTRODUODENOSCOPY 01/11/2009 PROCEDURE: [place] ESOPHAGOGASTRODUODENOSCOPY TRANSORAL DIAGNOSTIC; COMMENT: [facility] - normal COLONOSCOPY W/ POLYPECTOMY 06/11/2014 PROCEDURE: WA COLSC FLX W/RMVL OF TUMOR POLYP LESION SNARE TQ; COMMENT: several small polyps -> serrated and tubular adenomas MULTIPLE TOOTH EXTRACTIONS PROCEDURE: HISTORICAL DENTAL EXTRACTION BREAST BIOPSY Left PROCEDURE: BX BREAST; PERC NEEDLE CORE W/IMAG GUID; COMMENT: b9 COLONOSCOPY 02/2019 PROCEDURE: HISTORICAL COLONOSCOPY; COMMENT: repeat 5 years OTHER SURGICAL HISTORY 09/2022 Bilateral PROCEDURE: MAMMOGRAM, SCREENING, BOTH BREASTS OTHER SURGICAL HISTORY 01/2013 PROCEDURE: WA ENDOSCOPY UPPER SMALL INTESTINE; COMMENT: normal upper [...] care for your loved ones. For example, child care aide or elderly care for an older [...] 2:45 PM EDT Office Visit Adult Medicine [facility] [address] [place] [address] Ashwini Zhang MD [address] [place] [address] 04/27/2025 2:20 PM EDT Appointment Radiology Department - [address] [place] [address] 11/20/2025 2:15 PM EST Office Visit [facility] Hematology Oncology [address] [place] [phone] Shae Arenas, DO [address] [place] [address] Health Maintenance Due Date Last Done Comments [...] K/mcL LAB HEMETOLOGY METHOD 11/16/2024 1:53 PM [facility] RBC 4.60 3.80 - 4.80 M/mcL LAB HEMETOLOGY METHOD 11/16/2024 1:53 PM [facility] Hemoglobin 13.5 11.5 - 16.0 g/dL LAB HEMETOLOGY METHOD 11/16/2024 1:53 PM [facility] Hematocrit 40.4 35.0 - 47.0 % LAB HEMETOLOGY METHOD 11/16/2024 1:53 PM [facility] MCV 87.3 79.0 - 98.0 FL LAB HEMETOLOGY METHOD 11/16/2024 1:53 PM [facility] MCH 29.2 27.0 - 32.0 pcg LAB HEMETOLOGY METHOD 11/16/2024 1:53 PM [facility] MCHC 33.4 32.0 - 37.0 g/dL LAB HEMETOLOGY METHOD 11/16/2024 1:53 PM [facility] RDW 12.9 11.0 - 15.0 % LAB HEMETOLOGY METHOD 11/16/2024 1:53 PM [facility] Platelets 80(L) 130 - 400 K/mcL LAB HEMETOLOGY METHOD 11/16/2024 1:53 PM [facility] Comment:reviewed by slide MPV 13.3(H) 7.0 - 11.0 FL LAB HEMETOLOGY METHOD 11/16/2024 1:53 PM [facility] NRBC 0.0 <1.0 % LAB HEMETOLOGY METHOD 11/16/2024 1:53 PM [facility] NRBC Absolute 0.00 <0.10 K/mcL LAB HEMETOLOGY METHOD 11/16/2024 1:53 PM [facility] Neutrophils Relative 66.3 % LAB HEMETOLOGY METHOD 11/16/2024 1:53 PM [facility] Lymphocytes Relative 26.6 % LAB HEMETOLOGY METHOD 11/16/2024 1:53 PM [facility] Monocytes Relative 6.0 % LAB HEMETOLOGY METHOD 11/16/2024 1:53 PM [facility] Eosinophils Relative 0.7 % LAB HEMETOLOGY METHOD 11/16/2024 1:53 PM [facility] Basophils Relative 0.2 % LAB HEMETOLOGY METHOD 11/16/2024 1:53 PM [facility] Immature Granulocytes Relative 0.2 % LAB HEMETOLOGY METHOD 11/16/2024 1:53 PM [facility] Neutrophils Absolute 2.67 1.50 - 7.00 K/mcL LAB HEMETOLOGY METHOD 11/16/2024 1:53 PM [facility] Lymphocytes Absolute 1.07 1.00 - 5.00 K/mcL LAB HEMETOLOGY METHOD 11/16/2024 1:53 PM [facility] Monocytes Absolute 0.24 0.20 - 1.00 K/mcL LAB HEMETOLOGY METHOD 11/16/2024 1:53 PM [facility] Eosinophils Absolute 0.03 0.00 - 0.50 K/mcL LAB HEMETOLOGY METHOD 11/16/2024 1:53 PM [facility] Basophils Absolute 0.01 0.00 - 0.20 K/[facility] LAB HEMETOLOGY METHOD 11/16/2024 1:53 PM EST [facility] Immature Granulocytes Absolute 0.01 0.00 - 0.03 K/[facility] LAB HEMETOLOGY METHOD 11/16/2024 1:53 PM EST [facility] Blood Venous blood specimen / Unknown Venipuncture / Unknown 11/16/2024 11:11 AM EST 11/16/2024 12:17 PM EST Shae Arenas DO LAB BLOOD ORDERABLES Final Result Performing Organization Address [facility]/ZIP Co de Phone Number [facility] [address] [place] [address], [place] [phone] * (ABNORMAL) Hemoglobin A1c (08/28/2024 12:50 PM EST) Hemoglobin A1C 6.6(H) <6.5 % LAB CHEMISTRY METHOD 08/28/2024 7:00 PM EST [facility] Mean Bld Glu Estim. 143 mg/dL LAB CHEMISTRY METHOD 08/28/2024 7:00 PM EST [facility] Blood Venous blood specimen / Unknown Venipuncture / Unknown 08/28/2024 12:50 PM EST 08/28/2024 12:50 PM EST Ashwini Zhang MD LAB BLOOD ORDERABLES Final Resul t [facility] [address] [place] [address], [place] [phone] * SCREENING MAMMOGRAPHY BI 2-VIEW BREAST INC [...] Result * DXA BONE DENSITY STUDY 1+ [facility] (02/09/2024 11:23 AM EDT) Anatomical Region Laterality Modality Bone Densitometr y 12/29/2023 9:02 AM EDT Narrative 02/10/2024 11:46 AM EDT Clinical history: menopausal/postmenopausal disorder Scans of the lumbar spine and hips were performed on a Xylo/[employer] fan beam bone densitometer. ? Bone mineral [...] spine and hips were performed on a Xylo/[employer] Train[employer] beam bone densitometer. Bone mineral density measurements [...] Result * Annual BMP Blood Test (03/13/2021) [facility] Annual BMP Blood Test Abstracted Historical Provider HEALTH MAINTENANCE Final Result from Last 3 Months or Most Recently Relevant to Health Maintenance Insurance [facility] MEDICARE Member Subscriber Plan / Payer (Ef fective 2023-Present) Name:Venus Estrada Relation to Subscriber:Self Name:Venus Estrada Payer ID:[id number] Group ID:[id number] Type:Not on file Address: [address] [place] [address] [facility] Member Subscriber Plan / Payer (Ef fective 2023-Present) Name:Venus Estrada Relation to Subscriber:Self Name:Venus Estrada Payer ID:[id number] Group ID:[id number] Type:Not on file Address: [address] [place] [address] Advance Directives Documents on File Type Date Recorded Patient Tight Rope Walker Expl anation Health Care Decision (hx) 01/27/2023 [...] (hx) 03/20/2019 AD STRATTON DIRECTIVE Care Teams Automobile Taillight Assembler Relationship Specialty Start Date End Date Ashwini Zhang MD [address] [place] [phone] PCP - General Internal Medicine 03/06/21
--- OUTSIDE RECORDS SUMMARY | 2024-12-07 17:39 | XMS_ITS | Encounter Summary ---
Author Organization [facility] Address [address] [place] [address] Care Team Providers Care Animal Health Technician Name Role Phone Ashwini Zhang MD Primary Care Provider [phone] Reason for Visit * Reason Comments Follow-up Encounter Details Date Type Department Care Team (Latest Contact Info) Description 11/21/2024 2:15 PM EST Office Visit [facility] Hematology Oncology [address] [place] [phone] Shae Arenas, DO [address] [place] [address] Idiopathic thrombocytopenic purpura (CMS/HCC) (Primary Dx) Social [...] for your loved ones. For example, children's institution attendant or elderly care for an older adult? [...] Social history She is she lives in [place] Labs: Relevant data reviewed. Lab Results Component [...] 2:45 PM EDT Office Visit Adult Medicine [facility] - [address] [phone] Ashwini Zhang MD [address] [place] [address] 04/27/2025 2:20 PM EDT Appointment Radiology Department - [address] [phone] 11/20/2025 2:15 PM EST Office Visit [facility] Hematology Oncology [address] [place] [phone] Shae Arenas, [address] [place] [address] Scheduled Orders Name Type Priority Associated Diagnoses [...] documented as of this encounter Care Teams Animal Health Technician Relationship Specialty Start Date End Date Ashwini Zhang MD [address] [place] [address] PCP - General Internal Medicine 03/06/21 documented as of this encounter
--- OUTSIDE RECORDS SUMMARY | 2024-12-07 17:39 | XMS_ITS | Clinical Summary ---
Author Organization [facility] Address [address] [place] [address] Care Team Providers Care Wind Turbine Service Technician Name Role Phone Ashwini Zhang MD Primary Care Provider [phone] Allergies Active Allergy Reactions Criticality Noted Date [...] as prescribed. Daily sun protection. Follow with slotter operator helper regularly-at least every 12 months. [...] on 05/2009. Patient follow with Urology outside [facility] Social History Tobacco Use Types Packs/Day Years [...] age to complete this topic Care Teams Wind Turbine Service Technician Relationship Specialty Start Date End Date Ashwini Zhang MD PCP - General Internal Medicine 04/07/22
[2024-12-07 17:49] LABS: MANUAL DIFF FLAG NO
[2024-12-07 17:59] LABS: Basophils Percent Auto 0.5 % (0-2); Eosinophils Absolute Auto 0.1 X10*3/uL (0.0-0.4); Eosinophils Percent Auto 0.8 % (0-4); Hematocrit 43.5 % (37.0-47.0); Hemoglobin 14.9 g/dl (12.0-16.0); Imm Gran Abs Auto 0.02 X10*3/uL (0.00-0.03); Imm Gran Pct Auto 0.3 % (0.0-0.4); Lymphocytes Absolute Auto 1.8 X10*3/uL (1.2-4.9); Lymphocytes Percent Auto 29.1 % (20-40); Mean Corpuscular HGB Conc 34.3 g/dl (31.0-35.0); Mean Corpuscular Hemoglobin 28.6 pg (27.0-33.0); Mean Corpuscular Volume 83.5 fL (80.0-98.0); Mean Platelet Volume 12.5 fL (9.4-12.3); Monocytes Absolute Auto 0.4 X10*3/uL (0.1-1.2); Monocytes Percent Auto 5.7 % (2-11); Neutrophils Absolute Auto 3.9 x10*3/uL (2.0-8.3); Neutrophils Percent Auto 63.6 % (45-73); Platelet Count 119 X10*3/uL (160-400); Red Blood Count 5.21 X10*6/uL (4.20-5.50); Red Cell Distribution Width 12.6 % (11.0-16.0); White Blood Count 6.2 X10*3/uL (4.8-10.8)
[2024-12-07 18:08] LABS: Alanine Aminotransferase 34 U/L (0-31); Aspartate Amino Transferase 37 U/L (5-31); C Reactive Protein 0.24 mg/dL (< or = 0.50); Estimated Glomerular Filt Rate > 60
[2024-12-07 18:52] LABS: Erythrocyte Sedimentation Rate 12 MM/HR (0-20)
[2024-12-08 12:30] LABS: Complement C3 116 mg/dL (83-193)
[2024-12-08 20:23] LABS: Anti DNA DS Antibody <1 IU/mL; SM/Ribonucleoprotein Ab <1.0 NEG AI (<1.0 NEG); Smith Protein <1.0 NEG AI (<1.0 NEG)
[2024-12-14 15:32] LABS: ANA Titer 2 1:40 titer; Anti Nuclear Antibody Pattern Nuclear, Homogeneous; Anti Nuclear Antibody Screen POSITIVE (NEGATIVE); Anti Nuclear Antibody Titer 1:40 titer
== END 2024-12-07 13:21 | disposition home or self-care (01) ==
LOC: HO.HKASLDS 13:20
PROVIDERS: PCP Internal Medicine; Visit Provider Internal Medicine Rheumatology
DX: M32.9 Systemic lupus erythematosus, unspecified (principal); Z79.60 Long term (current) use of unspecified immunomodulators and immunosuppressants; Z79.899 Other long term (current) drug therapy
CPT/HCPCS: 36415; 82565; 84450; 84460; 85025; 85652; 86038; 86039; 86140; 86160; 86225; 86235; 99212

== ENCOUNTER 2025-03-13 12:38 | Outpatient (AMB) | payer OTHER, SELFPAY ==
[2025-03-13 12:41] VITALS: BP 150/90; PULSE 74; O2SAT 100; BMI 26.6
--- NOTE | 2025-03-13 12:41 | A.OFFVIS_ITS ---
Vital Signs 03/13/25 12:41 Height 5 ft Weight 136 lb BMI 26.6 BP 150/90 H Blood Pressure Location Lt brachial Position Sitting Pulse 74 Pulse Source Pulse Oximeter Pulse Oximetry (%) 100 Oxygen Delivery Method Room Air Intake Visit Reasons: 3 Months Intake Note: Patient presents for follow up on lupus and arthritis. Accompanied by: Self / Same As Patient Allergies acetaminophen [From Percocet] Allergy (Mild, Verified 03/13/25 12:44) Rash naproxen Allergy (Mild, Verified 03/13/25 12:44) bleeding oxycodone [From Percocet] Allergy (Mild, Verified 03/13/25 12:44) Rash HPI HPI 3 Months: Details: GERD is uncontroled. EGD revealed portal hypertension gastrophy. R elbow pain described as burning when it hits surfaces. R knee pain similar burning sensation when kneeling. [facility] Medical History T2DM (type 2 diabetes mellitus) Physical Exam Vital Signs: Last Vital Signs Pulse 74 03/13/25 12:41 BP 150/90 H 03/13/25 12:41 Pulse Ox 100 03/13/25 12:41 Oxygen Delivery Method Room Air 03/13/25 12:41 BMI result Body Mass Index 26.6 Const Other: General: Comfortable CVS: RRR Respiratory: clear to auscultation bilaterally. Good respiratory effort Skin: No lesions seen MSK: No tenderness of any joint. No synovitis. Present on right elbow without pain on palpation. She localizes pain to distal to joint line of right knee lateral side along patellar tendon but I am unable to reproduce it. No effusion or crepitus. Normal range of motion of upper extremities and lower extremities. Assessment & Plan Assessment & Plan (1) Systemic lupus erythematosus: Comment: Controlled on hydroxychloroquine 200 mg daily. Chronic thrombocytopenia likely due to ITP/SLE. Thrombocytopenia has been stable. Rheumatology history: She was diagnosed with systemic lupus erythematosus in 2013, positive LUMBER TRIPPER antibody, manifesting with chronic thrombocytopenia, malar rash, photosensitivity hair loss, and joint pain. Joint pain improved on hydroxychloroquine. Hydroxychloroquine 400 mg q.day cause headaches. She remains on hydroxychloroquine 200 mg daily since 2018. Code(s): M32.9 - Systemic lupus erythematosus, unspecified Category: Medical Qualifiers: Systemic lupus erythematosus organ involvement: unspecified Systemic lupus erythematosus type: unspecified Qualified Code(s): M32.9 - Systemic lupus erythematosus, unspecified Plan: Labs for disease and drug monitoring ordered Continue hydroxychloroquine 200 mg daily. OCT and visual field test okay 12/2024 Return to clinic in 3 months (2) Other long term care pharmacist (current) drug therapy: Code(s): Z79.899 - Other longterm (current) drug therapy Category: Medical Plan: See above (3) Right elbow pain: Comment: With nodule present-unclear etiology. Chronic pain. Code(s): M25.521 - Pain in right elbow Category: Medical Plan: Right elbow x-ray ordered Elbow support brace to wear during the day to prevent friction on elbow (4) Right knee pain: Comment: Unclear etiology. unremarkable exam. Code(s): M25.561 - Pain in right knee Category: Medical Plan: X-ray right knee ordered Orders: Orders Complete Blood Count Man Dif Today M32.9 - Systemic lupus erythematosus, unspecified, Z79.899 - Other long term care pharmacist (current) drug therapy Alanine Aminotransferase Today M32.9 - Systemic lupus erythematosus, unspecified, Z79.899 - Other long term care pharmacist (current) drug therapy Aspartate Amino Transferase Today M32.9 - Systemic lupus erythematosus, unspecified, Z79.899 - Other long term care pharmacist (current) drug therapy Creatinine Today M32.9 - Systemic lupus erythematosus, unspecified, Z79.899 - Other long term care pharmacist (current) drug therapy C Reactive Protein Today M32.9 - Systemic lupus erythematosus, unspecified, Z79.899 - Other longterm (current) drug therapy XR elbow RT 2V Today M25.521 - Pain in right elbow Erythrocyte Sedimentation Rate Today M32.9 - Systemic lupus erythematosus, unspecified, Z79.899 - Other longterm (current) drug therapy XR knee RT 2V Today M25.561 - Pain in right knee Medications: New arm brace (KARLEY Elbow Brace) right Elbow support brace used for olecranon bursitis. Use daily Dx: elbow pain 1 ea 0RF Coding Level of Care Code Est Pt Level 4 (33548) Complex EM visit Add On G2211 Diagnoses Systemic lupus erythematosus, unspecified SLE type, unspecified organ involvement status M32.9 Systemic lupus erythematosus organ involvement: unspecified Systemic lupus erythematosus type: unspecified Other longterm (current) drug therapy Z79.899 Right elbow pain M25.521 Right knee pain M25.561
--- OUTSIDE RECORDS SUMMARY | 2025-03-13 14:16 | XMS_ITS | Clinical Summary ---
Author Organization [facility] Address [address] [place] [address] Phone Care Team Providers Care Marine Gear Keeper Name Role Phone Ashwini Zhang MD Primary Care Provider [phone] Allergies Active Allergy Reactions Criticality Noted Date [...] GLUCOSE EVERY MORNING BEFORE BREAKFAST 4 Active amLODIPine (NORVASC) 5 mg tablet Take 1 tablet (5 mg total) by mouth 1 (one) time each day. 90 tablet 1 4 Active omeprazole (PriLOSEC) [address] capsule Take 1 capsule (20 mg total) by mouth 1 (one) time each day before breakfast. 90 capsule 5 Active cholecalciferol (VITAMIN D-3) 50 mcg (2,000 unit) tablet Take 1 tablet (2,000 Units total) by mouth 1 (one) time each day. 90 tablet 1 5 Active metFORMIN (GLUCOPHAGE) 500 mg tablet Take 2 tablets (1,000 mg total) by mouth 2 (two) times a day with meals. 360 tablet 5 Active Active Problems Problem Noted Date Diagnosed Date Overweight (BMI 25.0-29.9) 09/01/2024 Hypertension 07/20/2024 Fibromyalgia 06/08/2024 Osteopenia 02/11/2024 Overview (09/01/2024): 02/17 T score spine -2.1 hip -2.0 FRAX score 6.1% 10 year fracture risk Cirrhosis ([facility] V24, [facility] V28) 01/25/2023 Complex renal cyst 04/25/2021 Chronic fatigue [...] with bleeding 10/05/2016 Diabetes mellitus type 2, un complicated ([facility] V24, [facility] V28) 12/23/2015 SLE (systemic lupus erythema tosus) ([facility] V24, [facility] V28) 07/02/2015 Colon polyps 06/11/2014 Overview (09/01/2024): 06/11/14 c-scope Constipation 02/12/2014 UPJ obstruction, congenital 11/02/2013 Thrombocytopenia ([facility] V24) 08/27/2012 Overview (06/08/2024): Noted as early as 2008 ?etiology GERD (gastroesophageal reflux disease) 2 Depression 10/21/2011 Nephrolithiasis 05/27/2009 Overview (09/01/2024): Patient had a staghorn calculus on the right kidney and she is s/p urological surgery on 05/2009. Patient follow with Urology outside [facility] 08/29 bilateral nonobstructing stones Encounters Date Type Department Care Team Description 02/27/2025 1:09 PM EDT Anesthesia Event [facility] Endoscopy [address] [place] [phone] Roscoe Mansfield DO Slanda, Summer, CRNA 02/27/2025 11:47 AM EDT - 02/27/2025 11:59 PM EDT Hospital Encounter [facility] Endoscopy [address] [place] [phone] Timothy Carroll MD Slanda, Summer, CRNA Korobkov, Vitaliy, DO Esophageal varices (CMS/HCC V24, CMS/HCC V28) Discharge Disposition: Home or Self Care 02/22/2025 2:00 PM EDT [facility] [address] [phone] Louise Raman, TASIA History of esophageal varices (Primary Dx); History of cirrhosis of liver 02/22/2025 Telephone Gastroenterology [facility] 175 [facility] [address] [phone] Louise Raman NP 02/08/2025 2:45 PM EDT Office Visit [facility] Medicine [address] [phone] Elva Fagan PA Type 2 diabetes mellitus without complication, without long-term current use of insulin (CMS/HCC V24, CMS/HCC V28) (Primary Dx); Vitamin D deficiency; Systemic lupus erythematosus, unspecified SLE type, unspecified organ involvement status (CMS/HCC V24, CMS/HCC V28); Overweight (BMI 25.0-29.9); Raynaud's disease without gangrene; Osteopenia, unspecified location; Primary hypertension; Gastroesophageal reflux disease, unspecified whether esophagitis present 01/16/2025 Telephone Adult Medicine [address] [phone] Ashwini Zhang MD Request For Order(s) from Last 3 Months Immunizations Name Administration Dates Next Due Influenza Quadravalent, MDCK , 0.5ml, preservative free (Flucelvax) 6mo and older 07/03/2022,10/26/2019 Influenza Quadravalent, MDCK , 0.5ml, with preservative (Flucelvax) 6mo and older 07/07/2017 Influenza trivalent, 0.5mL, preservative free (Fluarix; FluLaval; Fluzone) ages 6mo and older (Afluria) 3 years and older 06/12/2024,06/14/2023,06/24/2018 Influenza trivalent, with pr eservative (Fluzone; Afluria) 6mo and older 07/02/2015,10/06/2012 [employer] SARS-CoV-2 COVID -19, vector-nr, rS-Ad26, preservative free [...] COMMENT: normal in 2004 ESOPHAGOGASTRODUODENOSCOPY 01/11/2009 PROCEDURE: GA ESOPHAGOGASTRODUODENOSCOPY TRANSORAL DIAGNOSTIC; COMMENT: [facility] - normal COLONOSCOPY W/ POLYPECTOMY 06/11/2014 PROCEDURE: GA COLSC FLX W/RMVL OF TUMOR POLYP LESION SNARE TQ; COMMENT: several small polyps -> serrated and tubular adenomas MULTIPLE TOOTH EXTRACTIONS PROCEDURE: HISTORICAL DENTAL EXTRACTION BREAST BIOPSY Left PROCEDURE: BX BREAST; PERC NEEDLE CORE W/IMAG GUID; COMMENT: b9 COLONOSCOPY 02/2019 PROCEDURE: HISTORICAL COLONOSCOPY; COMMENT: repeat 5 years OTHER SURGICAL HISTORY 09/2022 Bilateral PROCEDURE: MAMMOGRAM, SCREENING, BOTH BREASTS OTHER SURGICAL HISTORY 01/2013 PROCEDURE: GA ENDOSCOPY UPPER SMALL INTESTINE; COMMENT: normal upper endoscopy Medical History Medical History Date Comments Fibromyalgia DX:Fibromyalgia Raynaud phenomenon DX:Raynaud ph enomenon H. pylori infection 2007 DX:H. pylori infection; COMMENT: Tx with a PrevPac GERD (gastroesophageal reflu x disease) 05/12/2012 DX:GERD (gastroesophageal re flux disease) Hemorrhoids, internal, with bleeding 10/05/2016 DX:Hemorrhoids, internal, with bleeding Kidney stone DX:Kidney stone Diabetes mellitus type 2, uncomplicated (CMS/HCC V24, CMS/HCC V28) 12/23/2015 DX:Diabetes mellitus type 2, uncomplicated (HCC) Abnormal mammogram 09/2020 DX:Abnormal m ammogram Leukopenia DX:Leukopenia Complex renal cyst 04/25/2021 DX:Complex re nal cyst Cirrhosis of liver (CMS/HCC V24, CMS/HCC V28) DX:Cirrhosis of liver (HCC) Portal hypertension (CMS/HCC V24, CMS/HCC V28) DX:Portal hypertension (HCC) Esophageal varices (CMS/HCC V24, CMS/HCC V28) DX:Esophageal varices (HCC) Cirrhosis (CMS/HCC V24, CMS/HCC V28) 01/25/2023 DX:Cirrhosis (HCC) Abdominal pain DX:Abdominal vesta n Osteopenia 02/11/2024 DX:Osteopenia; C OMMENT: 02/17 T score spine -2.1 hip -2.0 FRAX score 6.1% 10 year fracture risk Hypertension Family History Medical History Relation Name Comments [...] your loved ones. For example, child care associate or elderly care for an older adult? [...] What is your living situation? 1 11/16/2023 Interpersonal Safety Answer Date Record ed Physical Abuse 02/27/2025 Verbal Abuse 02/27/2025 Comments No Sex and Gender Information Value Date Recorded Sex Assigned at Not on file Legal Sex Female 11:37 PM EST Gender Identity Not on file Sexual Orientation Not on file Obstetrics History Last Filed Vital Signs Vital Sign Reading Time Taken Comments Blood Pressure 140/83 02/27/2025 1:40 PM EDT Pulse 80 02/27/2025 1:40 PM EDT Temperature 36.1 ??C (97 ??F) 02/27/2025 1:20 PM EDT Respiratory Rate 16 02/27/2025 1:40 PM EDT Oxygen Saturation 100% 02/27/2025 1:40 PM EDT Inhaled Oxygen Concentration - - Weight 61.7 kg (136 lb) 02/27/2025 12:42 PM EDT Height 152.4 cm (5') 02/27/2025 12:42 PM EDT Body Mass Index 26.56 02/27/2025 12:42 PM EDT Plan of Treatment Upcoming Encounters Date Type Department Care Team (Late st Contact Info) Description 04/27/2025 2:20 PM EDT Appointment Radiology Department - [address] [phone] 05/17/2025 3:00 PM EDT Office Visit Adult Medicine [address] [phone] Ashwini Zhang MD [address] [place] [phone] 05/25/2025 1:00 PM EDT Office Visit Gastroenterology - [place] 175 [facility] 175 [facility] [address] [place] [phone] Louise Raman, SEMICONDUCTOR WAFER INSPECTOR 175 [facility] [address] [place] [address] 11/20/2025 2:15 PM EST Office Visit [facility] Hematology Oncology [address] [place] [phone] Shae Arenas, [address] [place] [address] Health Maintenance Due Date Last Done Comments Diabetes: Annual Foot Exam 1968 Hepatitis A Vaccines (1 of 2 - Risk 2-dose series) 1977 Hepatitis B Vaccines (1 of 3 - Risk 3-dose series) 2018 RSV Immunization Adult Patients (1 - Risk 60-74 years 1-dose series) 2018 Pneumococcal Vaccine: 50+ Years (2 of 2 - PPSV23) 12/20/2020 10/25/2020 COVID-19 Vaccine ( season) 2024 06/12/2024, 06/24/2023, 08/29/2021, Additional history exists Diabetes: Annual Retina Eye Exam 12/27/2024 12/28/2023 Diabetes: Blood Sugar Control Test (HGBA1C) 08/09/2025 02/06/2025, 08/28/2024, 05/01/2024, Additional history exists Depression Screening 09/15/2025 09/15/2024 Social Influencers of Health Screening 09/15/2025 09/15/2024 Diabetes: Annual Urine Albumin-Creatinine Ratio (uACR) 02/06/2026 02/06/2025 Diabetes: Annual GFR (Glomerular Filtration Rate) 02/06/2026 02/06/2025, 05/31/2024, 05/01/2024, Additional history exists Hypertension/CHF/CAD Annual BMP Blood Test 02/06/2026 02/06/2025, 05/31/2024, 05/01/2024, Additional history exists Falls Risk Assessment 02/27/2026 02/27/2025, 024 Breast Cancer Screening 04/20/2026 04/20/20 24, 04/20/2024, 10/21/2022, Additional history exists Colorectal Cancer Screening: Colonoscopy 07/12/2029 07/12/2024 Cholesterol Screening (Lipid Panel) 02/06/2030 02/06/2025 DTaP,Tdap,and Td Vaccines (3 - Td or Tdap) 09/11/2031 09/11/2021, 07/16/2011 Osteoporosis Screening (Bone Density Screening) 02/08/2034 02/09/2024, 02/09/2024 Zoster Vaccines Completed 07/03/2022, 01/02/2022 Influenza Vaccine Completed 06/12/2024, , 07/03/2022, Additional history exists Medicare Annual Wellness Visit Discontinued 09/15/2024 Hepatitis C Screening Completed 02/22/2025, 018 HIB Vaccines Aged Out No longer eligi [...] age to complete this topic Meningococcal B Vaccine Aged Out No l onger eligible based on patient's age to complete this topic RSV Immunization Patients Under 20 months Aged Out No longer eligible based on patient's age to complete this topic Varicella Vaccines Aged Out No longer eligible based on patient's age to complete this topic Procedures Procedure Name Priority Date/Time Associated Diagnosis Comments EGD Routine 02/27/2025 1:19 PM EDT Esophageal varices (CMS/HCC V24, CMS/HCC V28) TISSUE EXAM Routine 02/27/2025 1:13 PM EDT Esophageal varices (CMS/HCC V24, CMS/HCC V28) HEPATITIS A ANTIBODY IGM Routine 025 2:21 PM EDT History of cirrhosis of liver HEPATITIS A ANTIBODY TOTAL WITH REFLEX IGM Routine 02/22/2025 2:21 PM EDT History of cirrhosis of liver ALPHA FETOPROTEIN TUMOR MARKER Routine 02/22/2025 2:21 PM EDT History of cirrhosis of liver SMOOTH MUSCLE ANTIBODY IGG Routine 02/22/2025 2:21 PM EDT History of cirrhosis of liver ANTIMITOCHONDRIAL ANTIBODY Routine 02/22/2025 2:21 PM EDT History of cirrhosis of liver HEPATITIS C ANTIBODY Routine 02/22/2025 2:21 PM EDT History of cirrhosis of liver HEPATITIS B SCREENING PANEL Routine 02/22/2025 2:21 PM EDT History of cirrhosis of liver MICROALBUMIN CREATININE URINE RATIO Routine 02/06/2025 8:41 AM EDT Type 2 diabetes mellitus without complication, without long-term current use of insulin (CMS/HCC V24, CMS/HCC V28) COMPREHENSIVE METABOLIC PANEL Routine 02/06/2025 8:41 AM EDT Type 2 diabetes mellitus without complication, without long-term current use of insulin (CMS/HCC V24, CMS/HCC V28) HEMOGLOBIN A1C Routine 02/06/2025 8:41 AM EDT Type 2 diabetes mellitus without complication, without long-term current use of insulin (CMS/HCC V24, CMS/HCC V28) LIPID PANEL WITH REFLEX TO DIRECT LDL Routine 02/06/2025 8:41 AM EDT Type 2 diabetes mellitus without complication, without long-term current use of insulin (CMS/HCC V24, CMS/HCC V28) VITAMIN D 25 HYDROXY Routine 02/06/2025 8:41 AM EDT Vitamin D deficiency SCREENING MAMMOGRAPHY BI 2-VIEW BREAST INC CAD Routine 04/20/2024 2:37 PM EDT Encounter for screening mammogram for malignant neoplasm of breast DXA BONE DENSITY STUDY 1+ SITS AXIAL SKEL Routine 02/09/2024 11:23 AM EDT Asymptomatic menopausal state from Last 3 Months or Most Recently Relevant to Health Maintenance Results * EGD Anesthesia - MAC; [facility] ENDOSCOPY (02/27/2025 1:19 PM EDT) Anatomical Region Laterality Modality Other 02/27/2025 12:5 5 PM EDT Impressions 02/27/2025 1:17 PM EDT - Portal hypertensive gastropathy. Biopsied. Recommendation: ?- Await pathology results. ? - Observe patient's clinical course. ? - Repeat upper endoscopy in 2 years for surveillance. Narrative 02/27/2025 1:17 PM EDT [facility] GI Patient Name: Venus Estrada Procedure Date: 02/27/2025 12:55 PM Date of : 1960 Age: 64 Gender: Female Note Status: Finalized Attending MD: Timothy Carroll MD, Procedure Date No Time: 02/27/2025 Procedure: ? Upper GI endoscopy Indications: ? Cirrhosis rule out esophageal varices Providers: ? Timothy Carroll MD Referring MD: ?Timothy Carroll MD Medicines: ? Propofol per Anesthesia Complications: ? No immediate complications. Estimated Blood Loss: ? Estimated blood loss was minimal. Procedure: ? Pre-Anesthesia Assessment: ? - ASA Grade Assessment: III - A patient with severe ? systemic disease. ? After obtaining informed consent, the endoscope was ? passed under direct vision. Throughout the procedure, ? the patient's blood pressure, pulse, and oxygen ? saturations were monitored continuously.The Endoscope ? was introduced through the mouth, and advanced to the ? second part of duodenum. The upper GI endoscopy was ? accomplished without difficulty. The patient tolerated ? the procedure well. Findings: ?Moderate portal hypertensive gastropathy was found in ? the gastric body. Biopsies were taken with a cold ? forceps for histology. Estimated blood loss was ? minimal. Procedure Code(s): ? --- Professional --- ? 21421, Esophagogastroduodenoscopy, flexible, ? transoral; with biopsy, single or multiple Diagnosis Code(s): ? --- Professional --- ? K76.6, Portal hypertension ? K31.89, Other diseases of stomach and duodenum ? K74.60, Unspecified cirrhosis of liver CPT copyright 2020 [employer]. All rights reserved. The codes documented in this report are preliminary and upon consultative sales associate review may be revised to meet current compliance requirements. Timothy Carroll MD 02/27/2025 1:17:16 PM This report has been signed electronically.Timothy Carroll MD Number of Addenda: 0 Note Initiated On: 02/27/2025 12:55 PM Scope In: Scope Out: ? Endoscopy Department at [facility] - [address] [place] [address], ? [place] [address] Procedure Note Timothy Carroll MD - 02/27/2025 [facility] GI Patient Name: Venus Estrada Procedure Date: 02/27/2025 12:55 PM Date of : 1960 Age: 64 Gender: Female Note Status: Finalized Attending MD: Timothy Carroll MD, Procedure Date No Time: 02/27/2025 Procedure: Upper GI endoscopy Indications: Cirrhosis rule out esophageal varices Providers: Timothy Carroll MD Referring MD: Timothy Carroll MD Medicines: Propofol per Anesthesia Complications: No immediate complications. Estimated Blood Loss: Estimated blood loss was minimal. Procedure: Pre-Anesthesia Assessment: - ASA Grade Assessment: III - A patient with severe systemic disease. After obtaining informed consent, the endoscope was passed under direct vision. Throughout theprocedure, the patient's blood pressure, pulse, and oxygen saturations were monitored continuously.TheEndoscope was introduced through the mouth, and advanced tothe second part of duodenum. The upper GI endoscopy was accomplished without difficulty. The patienttolerated the procedure well. Findings: Moderate portal hypertensive gastropathy was foundin the gastric body. Biopsies were taken with a cold forceps for histology. Estimated blood loss was minimal. Procedure Code(s): --- Professional --- 51397, Esophagogastroduodenoscopy, flexible, transoral; with biopsy, single or multiple Diagnosis Code(s): --- Professional --- K76.6, Portal hypertension K31.89, Other diseases of stomach and duodenum K74.60, Unspecified cirrhosis of liver CPT copyright 2020 [employer]. All rights reserved. The codes documented in this report are preliminary and upon consultative sales associate reviewmay be revised to meet current compliance requirements. Timothy Carroll MD 02/27/2025 1:17:16 PM This report has been signed electronically.Timothy Carroll MD Number of Addenda: 0 Note Initiated On: 02/27/2025 12:55 PM Scope In: Scope Out: Endoscopy Department at [facility] - [address] [place] [phone] IMPRESSION: - Portal hypertensive gastropathy. Biopsied. Recommendation: - Await pathology results. - Observe patient's clinical course. - Repeat upper endoscopy in 2 years forsurveillance. Timothy Carroll MD GI~PROCEDURE ORDERABLES Final Re sult * Tissue exam (02/27/2025 1:13 PM EDT) Final Diagnosis Stomach, gastric biopsies: Helicobacter pylori gastritis. Note: Routine sections show active chronic gastritis with Helicobacter identified on H&E stain. 02/28/2025 11:12 AM EDT [facility] Gross Description A. Stomach, gastric biopsies: Labeled gastric b stomach . Received in formalin, is an approximately 0.6 cm in greatest diameter soft to rubbery, tracey-pink to red tissue fragment, which is wrapped in paper and submitted in toto in one cassette, one piece, multiple levels. hs/DG 02/28/2025 11:12 AM EDT [facility] Disclaimer Unless otherwise specified, all tissue is 10% NB formalin fixed and paraffin embedded. 02/28/2025 11:12 AM EDT [facility] Tissue Stomach structure / Unknown 02/27/2025 1:13 PM EDT 02/27/2025 2:50 PM EDT Timothy Carroll MD LAB PATHOLOGY ORDERABLES Final R esult Performing Organization Address City/[facility]/ZIP Co de Phone Number [facility] [address] [place] [address], [place] [phone] * Hepatitis C antibody (02/22/2025 2:21 PM EDT) Pathologist [facility] Hepatitis C Antibody Negative Negative LAB CHEMISTRY METHOD 02/22/2025 7:20 PM EDT [facility] Blood Venous blood specimen / Unknown Venipuncture / Unknown 02/22/2025 2:21 PM EDT 02/22/2025 2:21 PM EDT Louise Raman NP LAB BLOOD ORDERABLES Final Resu lt Performing Organization Address [facility] Co de Phone Number [facility] [address] [place] [address], [place] [phone] * (ABNORMAL) Hepatitis A antibody total with reflex IgM (02/22/2025 2:21 PM EDT) Pathologist [facility] Hep A Total Ab Positive( A) Negative LAB CHEMISTRY METHOD 02/22/2025 7:21 PM EDT [facility] Blood Venous blood specimen / Unknown Venipuncture / Unknown 02/22/2025 2:21 PM EDT 02/22/2025 2:21 PM EDT Narrative [facility] - 02/22/2025 7:21 PM EDT Over the counter supplements containing high doses of biotin may interfere with this assay. ??If interference is suspected, patients shoud be retested after refraining from biotin supplements for 72 hours. Louise Raman NP LAB BLOOD ORDERABLES Final Resu lt Performing Organization Address City/[facility]/ZIP Co de Phone Number [facility] [address] [place] [address], [place] [phone] * (ABNORMAL) Hepatitis B screening panel (02/22/2025 2:21 PM EDT) Pathologist [facility] Hepatitis B Surface Ag Negative Negative LAB CHEMISTRY METHOD 02/22/2025 7:21 PM EDT [facility] Hep B Core Total Ab Negative Negative LAB CHEMISTRY METHOD 02/22/2025 7:21 PM EDT [facility] Hepatitis B Surface Ab Positive(A) Negative LAB CHEMISTRY METHOD 02/22/2025 7:21 PM EDT [facility] Blood Venous blood specimen / Unknown Venipuncture / Unknown 02/22/2025 2:21 PM EDT 02/22/2025 2:21 PM EDT Louise Raman NP LAB BLOOD ORDERABLES Final Resu lt Performing Organization Address [facility]/ZIP Co de Phone Number [facility] [address] [place] [address], [place] [phone] * Smooth muscle antibody IgG (02/22/2025 2:21 PM EDT) Pathologist [facility] Smooth Muscle (F-Actin) IgG Ab 7 <20 UNITS 02/26/2025 1:56 PM EDT [facility] Comment: Interpretation: Negative Test performed at [facility], [address] , [place], [place] [address] ? [phone] Bree Wharton MD, PhD - Aircraft Electronics Technical Officer Blood Venous blood specimen / Unknown Venipuncture / Unknown 02/22/2025 2:21 PM EDT 02/22/2025 2:21 PM EDT us Louise Raman NP LAB BLOOD ORDERABLES Final Resu lt Performing Organization Address City/[facility]/ZIP Co de Phone Number [facility] [address] [place] [address] * Hepatitis A antibody IgM (02/22/2025 2:21 PM EDT) Hepatitis A Antibody IgM Negative Negative LAB CHEMISTRY METHOD 02/22/2025 10:10 PM EDT [facility] Blood Venous blood specimen / Unknown Venipuncture / Unknown 02/22/2025 2:21 PM EDT 02/22/2025 2:21 PM EDT Narrative [facility] - 02/22/2025 10:10 PM EDT Over the counter supplements containing high doses of biotin may interfere with this assay. ??If interference is suspected, patients shoud be retested after refraining from biotin supplements for 72 hours. us Louise Raman NP LAB BLOOD ORDERABLES Final Resu lt [facility] [address] [place] [address], [place] [phone] * Alpha fetoprotein tumor marker (02/22/2025 2:21 PM EDT) [facility] AFP 3.1 0.0 - 8.0 ng/mL LAB CHEMISTRY METHOD 02/22/2025 6:41 PM EDT [facility] Blood Venous blood specimen / Unknown Venipuncture / Unknown 02/22/2025 2:21 PM EDT 02/22/2025 2:21 PM EDT Narrative [facility] - 02/22/2025 6:41 PM EDT The Siemens Advia Centaur Chemiluminescent Immunoassay is used. Results obtained with different assay methods or kits cannot be used interchangeably. Results cannot be interpreted as absolute evidence of the presence or absence of malignant disease. us Louise Raman NP LAB BLOOD ORDERABLES Final Resu lt [facility] [address] [place] [address], [place] [phone] * Antimitochondrial antibody (02/22/2025 2:21 PM EDT) Mitochondrial Antibody Quantitative 3.6 <=20.0 units LAB CHEMISTRY METHOD 02/28/2025 1:14 PM EDT [facility] Mitochondrial Antibody Qualitative Negative Negative LAB CHEMISTRY METHOD 02/28/2025 1:14 PM EDT [facility] Blood Venous blood specimen / Unknown Venipuncture / Unknown 02/22/2025 2:21 PM EDT 02/22/2025 2:21 PM EDT Louise Raman SEMICONDUCTOR WAFER INSPECTOR LAB BLOOD ORDERABLES Final Resu lt [facility] [address] [place] [address], [place] [phone] * Lipid panel with reflex to direct LDL (02/06/2025 8:41 AM EDT) Cholesterol 136 0 - 200 mg/dL LAB CHEMISTRY METHOD 02/06/2025 1:58 PM EDT [facility] Triglycerides 83 0 - 150 mg/dL LAB CHEMISTRY METHOD 02/06/2025 1:58 PM EDT [facility] HDL 65 >=40 mg/dL LAB CHEMISTRY METHOD 02/06/2025 1:58 PM T [facility] LDL Calculated 54 0 - 100 mg/dL LAB CHEMISTRY METHOD 02/06/2025 1:58 PM T [facility] VLDL Cholesterol Roverto 16.6 mg/dL LAB CHEMISTRY METHOD 02/06/2025 1:58 PM T [facility] Non HDL Chol. (LDL+VLDL) 71 <145 mg/dL LAB CHEMISTRY METHOD 02/06/2025 1:58 PM EDT [facility] Chol/HDL Ratio 2.1 0.0 - 4.4 LAB CHEMISTRY METHOD 02/06/2025 1:58 PM T [facility] Blood Venous blood specimen / Unknown Venipuncture / Unknown 02/06/2025 8:41 AM EDT 02/06/2025 8:41 AM EDT us Elva DEVINE LAB BLOOD ORDERABLES Final Re sult [facility] [address] [place] [address], [place] [phone] * (ABNORMAL) Microalbumin creatinine urine ratio (02/06/2025 8:41 AM EDT) Creatinine, Urine 111.0 mg/dL LAB CHEMISTRY METHOD 02/06/2025 4:06 PM EDT [facility] Microalb, Ur 29.8(H) 0.0 - 29.0 mg/L LAB CHEMISTRY METHOD 02/06/2025 4:06 PM EDT [facility] Microalb/Crea t Ratio 27 <30 mg/g creat LAB CHEMISTRY METHOD 02/06/2025 4:06 PM EDT [facility] Urine Urine specimen from urethra / Unknown Non-blood Collection / Unknown 02/06/2025 8:41 AM EDT 02/06/2025 8:41 AM EDT us Elva DEVINE LAB URINE ORDERABLES Final Re sult Performing Organization Address [facility]/ZIP Co de Phone Number [facility] [address] [place] [address], [place] [phone] * Vitamin D 25 hydroxy (02/06/2025 8:41 AM EDT) Vit D, 25-Hydroxy 40.4 30.0 - 80.0 ng/mL LAB CHEMISTRY METHOD 02/06/2025 3:08 PM EDT [facility] Blood Venous blood specimen / Unknown Venipuncture / Unknown 02/06/2025 8:41 AM EDT 02/06/2025 8:41 AM EDT us Elva DEVINE LAB BLOOD ORDERABLES Final Re sult Performing Organization Address [facility]/ZIP Co de Phone Number [facility] [address] [place] [address], [place] [phone] * (ABNORMAL) Hemoglobin A1c (02/06/2025 8:41 AM EDT) [facility] Hemoglobin A1C 7.9(H) <6.5 % LAB CHEMISTRY METHOD 02/06/2025 1:53 PM EDT [facility] Mean Bld Glu Estim. 180 mg/dL LAB CHEMISTRY METHOD 02/06/2025 1:53 PM EDT [facility] Blood Venous blood specimen / Unknown Venipuncture / Unknown 02/06/2025 8:41 AM EDT 02/06/2025 8:41 AM EDT us Elva DEVINE LAB BLOOD ORDERABLES Final Re sult Performing Organization Address [facility]/ZIP Co de Phone Number [facility] [address] [place] [address], [place] [phone] * (ABNORMAL) Comprehensive metabolic panel (02/06/2025 8:41 AM EDT) [facility] Sodium 141 133 - 145 mmol/L LAB CHEMISTRY METHOD 02/06/2025 1:58 PM EDT [facility] Potassium 4.1 3.5 - 5.5 mmol/L LAB CHEMISTRY METHOD 02/06/2025 1:58 PM EDT [facility] Chloride 105 96 - 110 mmol/L LAB CHEMISTRY METHOD 02/06/2025 1:58 PM EDT [facility] CO2 28 21 - 32 mmol/L LAB CHEMISTRY METHOD 02/06/2025 1:58 PM EDT [facility] Anion Gap 8 3 - 11 LAB CHEMISTRY METHOD 02/06/2025 1:58 PM EDT [facility] Glucose 168(H) 70 - 100 mg/dL LAB CHEMISTRY METHOD 02/06/2025 1:58 PM [facility] BUN 7 5 - 25 mg/dL LAB CHEMISTRY METHOD 02/06/2025 1:58 PM [facility] Creatinine 0.49(L) 0.50 - 1.10 mg/dL LAB CHEMISTRY METHOD 02/06/2025 1:58 PM [facility] eGFR 104 >=60 mL/min/1. 73m2 LAB CHEMISTRY METHOD 02/06/2025 1:58 PM [facility] Comment:Calculation based on the Chronic Kidney Disease Epidemiology Collaboration (CKD-EPI) equation refit without adjustment for race. BUN/Creatinine Ratio 14.3 LAB CHEMISTRY METHOD 02/06/2025 1:58 PM [facility] Calcium 9.2 8.5 - 10.5 mg/dL LAB CHEMISTRY METHOD 02/06/2025 1:58 PM [facility] AST (SGOT) 24 10 - 42 unit/L LAB CHEMISTRY METHOD 02/06/2025 1:58 PM [facility] ALT (SGPT) 31 10 - 60 unit/L LAB CHEMISTRY METHOD 02/06/2025 1:58 PM [facility] Alkaline Phosphatase 110 42 - 121 unit/L LAB CHEMISTRY METHOD 02/06/2025 1:58 PM [facility] Total Protein 7.4 6.0 - 8.0 g/dL LAB CHEMISTRY METHOD 02/06/2025 1:58 PM [facility] Albumin 3.7 3.2 - 5.0 g/dL LAB CHEMISTRY METHOD 02/06/2025 1:58 PM [facility] Total Bilirubin 0.7 0.0 - 1.4 mg/dL LAB CHEMISTRY METHOD 02/06/2025 1:58 PM [facility] Blood Venous blood specimen / Unknown Venipuncture / Unknown 02/06/2025 8:41 AM EDT 02/06/2025 8:41 AM EDT us Elva DEVINE LAB BLOOD ORDERABLES Final Re sult [facility] [address] [place] [address], [place] [phone] * SCREENING MAMMOGRAPHY BI 2-VIEW BREAST INC [...] evidence of malignancy. BI-RADS 1 - negative Ashwini Zhang MD IMG XR PROCEDURES Final Result * DXA BONE DENSITY STUDY 1+ SITS AXIAL SKEL (02/09/2024 11:23 AM EDT) Anatomical Region Laterality Modality Bone Densitometr y 12/29/2023 9:02 AM EDT Narrative 02/10/2024 11:46 AM EDT Clinical history: menopausal/postmenopausal disorder Scans of the lumbar spine and hips were performed on a [email or web address] fan beam bone densitometer. ? Bone mineral [...] spine and hips were performed on a [employer] beam bone densitometer. 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
== END 2025-03-13 13:31 | disposition home or self-care (01) ==
LOC: HO.RHES 12:39
PROVIDERS: PCP Internal Medicine; Visit Provider Internal Medicine Rheumatology
DX: M32.9 Systemic lupus erythematosus, unspecified (principal); Z79.899 Other long term (current) drug therapy; M25.521 Pain in right elbow; M25.561 Pain in right knee
CPT/HCPCS: 99214; G2211

== ENCOUNTER 2025-03-13 12:38 | Outpatient (REF) | payer OTHER, SELFPAY ==
[2025-03-13 17:53] LABS: Baso%MD 0.4 %; Eos%MD 0.8 %; Hematocrit 39.8 % (37.0-47.0); Hemoglobin 13.6 g/dl (12.0-16.0); IG%MD 0.4 %; Lymph%MD 23.6 %; Mean Corpuscular HGB Conc 34.2 g/dl (31.0-35.0); Mean Corpuscular Volume 84.9 fL (80.0-98.0); Mean Platelet Volume 12.5 fL (9.4-12.3); Neut%MD 67.8 %; Red Blood Count 4.69 X10*6/uL (4.20-5.50); Red Cell Distribution Width 13.1 % (11.0-16.0); White Blood Count 5.1 X10*3/uL (4.8-10.8)
[2025-03-13 17:58] LABS: Alanine Aminotransferase 36 U/L (0-31); Aspartate Amino Transferase 30 U/L (5-31); C Reactive Protein 0.32 mg/dL (< or = 0.50); Estimated Glomerular Filt Rate > 60
[2025-03-13 18:26] LABS: Band Neutrophils Percent 0 % (3-5); Lymphocytes Absolute Manual 1.2 X10*3/uL (1.2-4.9); Lymphocytes Percent Manual 23 % (20-40); Monocytes Absolute Manual 0.2 X10*3/uL (0.1-1.2); Monocytes Percent Manual 3 % (2-11); Neutrophils Absolute Manual 3.7 X10*3/uL (2.0-8.3); Neutrophils Percent Manual 73 % (45-73); Platelet Count 89 X10*3/uL (160-400)
[2025-03-13 18:27] LABS: Platelet Estimate DECREASED (NORMAL); Platelet Morphology Comment NORMAL; RBC Morphology NORMAL
[2025-03-13 18:28] LABS: Erythrocyte Sedimentation Rate 12 MM/HR (0-20)
== END 2025-03-13 12:39 | disposition home or self-care (01) ==
LOC: HO.HKASLDS 12:38
PROVIDERS: PCP Internal Medicine; Visit Provider Internal Medicine Rheumatology
DX: M32.9 Systemic lupus erythematosus, unspecified (principal); Z79.899 Other long term (current) drug therapy; M25.521 Pain in right elbow; M25.561 Pain in right knee
CPT/HCPCS: 36415; 82565; 84450; 84460; 85007; 85027; 85652; 86140; 99212

== ENCOUNTER 2025-03-14 12:54 | Outpatient (REF) | payer OTHER, SELFPAY ==
--- NOTE | ~2025-03-14 | XR_ITS ---
EXAMINATION: XR ELBOW, RIGHT CLINICAL INFORMATION: M25.521 - Pain in right elbow COMPARISON: None available. TECHNIQUE: AP, lateral, and oblique views of the right elbow. FINDINGS: No acute cortical disruption or malalignment. No lytic or blastic lesions. No gross joint effusion. No subcutaneous emphysema. XR/XR elbow RT min 3V IMPRESSION: No acute fracture or dislocation. Negative exam. Electronically signed by: Barrie Sol MD 03/14/2025 01:58 PM EDT
--- NOTE | ~2025-03-14 | XR_ITS ---
EXAMINATION: XR KNEE, RIGHT CLINICAL INFORMATION: M25.561 - Pain in right knee COMPARISON: None available. TECHNIQUE: AP and lateral views of the right knee. FINDINGS: No acute cortical disruption or malalignment. Joint space narrowing involving mostly the medial compartment. Sclerosis along the articular surface of the medial tibial plateau. No suprapatellar bursa joint effusion. Exostosis at the quadriceps tendon insertion. No lytic or blastic lesions. Osteopenia versus osteoporosis. XR/XR knee RT 2V IMPRESSION: Medial compartment osteoarthrosis. Tendinopathy versus tendinosis, Quadriceps tendon Electronically signed by: Barrie Sol MD 03/14/2025 01:58 PM EDT
--- OUTSIDE RECORDS SUMMARY | 2025-03-14 14:46 | XMS_ITS | Clinical Summary ---
Author Organization [facility] Address [address] [place] [address] Phone Care Team Providers Care Pull Over Machine Operator Name Role Phone Ashwini Zhang MD Primary Care Provider [phone] Allergies Active Allergy Reactions Criticality Noted Date [...] score 6.1% 10 year fracture risk Cirrhosis ([facility] [place]24, [facility] V28) 01/25/2023 Complex renal cyst 04/25/2021 Chronic [...] 10/05/2016 Diabetes mellitus type 2, un complicated ([facility] V24, [facility] V28) 12/23/2015 SLE (systemic lupus erythema tosus) ([facility] [place], [facility] V28) 07/02/2015 Colon polyps 06/11/2014 Overview (09/01/2024): 06/11/14 c-scope Constipation 02/12/2014 UPJ obstruction, congenital 11/02/2013 Thrombocytopenia ([facility] [place]) 08/27/2012 Overview (06/08/2024): Noted as early as 2008 ?etiology GERD (gastroesophageal reflux disease) 2 Depression 10/21/2011 Nephrolithiasis 05/27/2009 Overview (09/01/2024): Patient had a staghorn calculus on the right kidney and she is s/p urological surgery on 05/2009. Patient follow with Urology outside [facility] 08/29 bilateral nonobstructing stones Encounters Date Type Department Care Team Description 03/13/2025 Telephone Adult Medicine [address] [phone] Ashwini Zhang MD Letter for School/Work (Jury Duty) 02/27/2025 1:09 PM EDT Anesthesia Event [facility] Endoscopy [address] [place] [phone] Roscoe Mansfield DO Slanda, Summer, CRNA 02/27/2025 11:47 AM EDT - 02/27/2025 11:59 PM EDT Hospital Encounter [facility] Endoscopy [address] [place] [phone] Timothy Carroll MD Slanda, Summer, CRNA Korobkov, Vitaliy, DO Esophageal varices (CMS/HCC V24, [facility] V28) Discharge Disposition: Home or Self Care 02/22/2025 2:00 PM EDT Office Visit Gastroenterology [facility] [address] [phone] Louise Raman NP History of esophageal varices (Primary Dx); History of cirrhosis of liver 02/22/2025 Telephone Gastroenterology [facility] 175 [facility] [address] [phone] Louise Raman NP 02/08/2025 2:45 PM EDT Office Visit Adult Medicine [address] [phone] Elva Fagan PA Type 2 diabetes mellitus without complication, without long-term current use of insulin ([facility] V24, [facility] V28) (Primary Dx); Vitamin D deficiency; Systemic lupus erythematosus, unspecified SLE type, unspecified organ involvement status ([facility] V24, [facility] V28); Overweight (BMI 25.0-29.9); Raynaud's disease without gangrene; Osteopenia, unspecified location; Primary hypertension; Gastroesophageal reflux disease, unspecified whether esophagitis present 01/16/[address] [phone] Ashwini Zhang MD Request For [...] eservative (Fluzone; Afluria) 6mo and older 07/02/2015,10/06/2012 [employer] SARS-CoV-2 COVID -19, vector-nr, rS-Ad26, preservative free [...] COMMENT: normal in 2004 ESOPHAGOGASTRODUODENOSCOPY 01/11/2009 PROCEDURE: IA ESOPHAGOGASTRODUODENOSCOPY TRANSORAL DIAGNOSTIC; COMMENT: [facility] - normal COLONOSCOPY W/ POLYPECTOMY 06/11/2014 PROCEDURE: IA COLSC FLX W/RMVL OF TUMOR POLYP LESION SNARE TQ; COMMENT: several small polyps -> serrated and tubular adenomas MULTIPLE TOOTH EXTRACTIONS PROCEDURE: HISTORICAL DENTAL EXTRACTION BREAST BIOPSY Left PROCEDURE: BX BREAST; PERC NEEDLE CORE W/IMAG GUID; COMMENT: b9 COLONOSCOPY 02/2019 PROCEDURE: HISTORICAL COLONOSCOPY; COMMENT: repeat 5 years OTHER SURGICAL HISTORY 09/2022 Bilateral PROCEDURE: MAMMOGRAM, SCREENING, BOTH BREASTS OTHER SURGICAL HISTORY 01/2013 PROCEDURE: IA ENDOSCOPY UPPER SMALL INTESTINE; COMMENT: normal upper [...] for your loved ones. For example, child psychometrist or elderly care for an older adult? [...] 80 02/27/2025 1:40 PM EDT Temperature 36.1 C (97 F) 02/27/2025 1:20 PM EDT Respiratory Rate 16 [...] 2:20 PM EDT Appointment Radiology Department - [address] [phone] 05/17/2025 3:00 PM EDT Office Visit Adult Medicine [place] [address] [phone] Ashwini Zhang MD [address] [place] [address] 05/25/2025 1:00 PM EDT Office Visit Gastroenterology - [place] 175 [facility] 175 [facility] [address] [place] [phone] Louise Raman, PLANT GUIDE 175 [facility] [address] [place] [address] 11/20/2025 2:15 PM EST Office Visit [facility] Hematology Oncology [address] [place] [phone] Shae Arenas, DO [address] [place] [address] Health Maintenance Due Date Last Done Comments [...] Routine 02/27/2025 1:19 PM EDT Esophageal varices ([facility]/HCC V24, CMS/HCC V28) TISSUE EXAM Routine 02/27/2025 [...] Maintenance Results * EGD Anesthesia - MAC; SP ENDOSCOPY (02/27/2025 1:19 PM EDT) Anatomical Region Laterality Modality Other 02/27/2025 12:5 5 PM EDT Impressions 02/27/2025 1:17 PM EDT - Portal hypertensive gastropathy. Biopsied. Recommendation: - Await pathology results. - Observe patient's clinical course. - Repeat upper endoscopy in 2 years for surveillance. Narrative 02/27/2025 1:17 PM EDT [facility] GI Patient Name: Venus Estrada Procedure Date: 02/27/2025 12:55 PM Date of : 1960 Age: 64 Gender: Female Note Status: Finalized Attending MD: Timothy Craroll MD, Procedure Date No Time: 02/27/2025 Procedure: [...] endoscope was passed under direct vision. Throughout the procedure, the patient's blood pressure, pulse, and oxygen saturations were monitored continuously.The Endoscope was introduced through the mouth, and advanced to the second part of duodenum. The upper GI endoscopy was accomplished without difficulty. The patient tolerated the procedure well. Findings: Moderate portal hypertensive gastropathy was found in the gastric body. Biopsies were taken with a cold forceps for histology. Estimated blood loss was minimal. Procedure Code(s): --- Professional --- 19888, Esophagogastroduodenoscopy, flexible, transoral; with biopsy, single or multiple Diagnosis Code(s): --- Professional --- K76.6, Portal hypertension K31.89, Other diseases of stomach and duodenum K74.60, Unspecified cirrhosis of liver CPT copyright 2020 [employer]. All rights reserved. The codes documented in this report are preliminary and upon him coder review may be revised to meet current compliance requirements. Timothy Carroll MD 02/27/2025 1:17:16 PM This report has been signed electronically.Timothy Carroll MD Number of Addenda: 0 Note Initiated On: 02/27/2025 12:55 PM Scope In: Scope Out: Endoscopy Department at [facility] - [address] [place] [phone] Procedure Note Timothy Carroll MD - 02/27/2025 [facility] GI Patient Name: Venus Estrada Procedure Date: [...] was minimal. Procedure Code(s): --- Professional --- 19404, Esophagogastroduodenoscopy, flexible, transoral; with biopsy, single or multiple Diagnosis Code(s): --- Professional --- K76.6, Portal hypertension K31.89, Other diseases of stomach and duodenum K74.60, Unspecified cirrhosis of liver CPT copyright 2020 [employer]. All rights reserved. The codes documented in this report are preliminary and upon him coder reviewmay be revised to meet current compliance requirements. Timothy Carroll MD 02/27/2025 1:17:16 PM This report has been signed electronically.Timothy Carroll MD Number of Addenda: 0 Note Initiated On: 02/27/2025 12:55 PM Scope In: Scope Out: Endoscopy Department at [facility] - [address] [place] [phone] IMPRESSION: - Portal hypertensive gastropathy. Biopsied. Recommendation: [...] on H&E stain. 02/28/2025 11:[address] [facility] Gross Description A. Stomach, gastric biopsies: Labeled gastric b stomach . Received in formalin, is an approximately 0.6 cm in greatest diameter soft to rubbery, tracey-pink to red tissue fragment, which is wrapped in paper and submitted in toto in one cassette, one piece, multiple levels. hs/DG 02/28/2025 11:[address] [facility] Disclaimer Unless otherwise specified, all tissue is 10% NB formalin fixed and paraffin embedded. 02/28/2025 11:[address] [facility] Tissue Stomach structure / Unknown 02/27/2025 1:13 PM EDT 02/27/2025 2:50 PM EDT Timothy Carroll MD LAB PATHOLOGY ORDERABLES Final R esult Performing Organization Address [facility]/ZIP Co de Phone Number [facility] [address] [place] [address], [place] [phone] * Hepatitis C antibody (02/22/2025 2:21 PM EDT) [facility] Hepatitis C Antibody Negative Negative LAB CHEMISTRY METHOD 02/22/2025 7:[address] [facility] Blood Venous blood specimen / Unknown Venipuncture / Unknown 02/22/2025 2:21 PM EDT 02/22/2025 2:21 PM EDT Louise Raman NP LAB BLOOD ORDERABLES Final Resu lt Performing Organization Address [facility] Co de Phone Number [facility] [address] [place] [address], [place] [phone] * (ABNORMAL) Hepatitis A antibody total with reflex IgM (02/22/2025 2:21 PM EDT) [facility] Hep A Total Ab Positive( A) Negative LAB CHEMISTRY METHOD 02/22/2025 7:[address] [facility] Blood Venous blood specimen / Unknown Venipuncture / Unknown 02/22/2025 2:21 PM EDT 02/22/2025 2:[address] [facility] - 02/22/2025 7:21 PM EDT Over the counter supplements containing high doses of biotin may interfere with this assay. If interference is suspected, patients shoud be retested after refraining from biotin supplements for 72 hours. Louise Raman NP LAB BLOOD ORDERABLES Final Resu lt Performing Organization Address [facility]/ZIP Co de Phone Number [facility] [address] [place] [address], [place] [phone] * (ABNORMAL) Hepatitis B screening panel (02/22/2025 2:21 PM EDT) Hepatitis B Surface Ag Negative Negative LAB CHEMISTRY METHOD 02/22/2025 7:[address] [facility] Hep B Core Total Ab Negative Negative LAB CHEMISTRY METHOD 02/22/2025 7:[address] [facility] Hepatitis B Surface Ab Positive(A) Negative LAB CHEMISTRY METHOD 02/22/2025 7:[address] [facility] Blood Venous blood specimen / Unknown Venipuncture / Unknown 02/22/2025 2:21 PM EDT 02/22/2025 2:21 PM EDT Louise Raman PLANT GUIDE LAB BLOOD ORDERABLES Final Resu lt Performing Organization Address [facility]/ZIP Co de Phone Number [facility] [address] [place] [address], * Smooth muscle antibody IgG (02/22/2025 2:21 PM EDT) Pathologist [facility] Smooth Muscle (F-Actin) IgG Ab 7 <20 UNITS 02/26/2025 1:56 PM EDT [facility] Comment: Interpretation: Negative Test performed at [facility], [address], [place] [address] Bree Wharton MD, PhD - Instructor [employer] Blood Venous blood specimen / Unknown Venipuncture / Unknown 02/22/2025 2:21 PM EDT 02/22/2025 2:21 PM EDT us Louise Raman PLANT GUIDE LAB BLOOD ORDERABLES Final Resu lt [facility] [address] [place], [place] [phone] * Hepatitis A antibody IgM (02/22/2025 2:21 PM EDT) Hepatitis A Antibody IgM Negative Negative LAB CHEMISTRY METHOD 02/22/2025 10:[address] [facility] Blood Venous blood specimen / Unknown Venipuncture / Unknown 02/22/2025 2:21 PM EDT 02/22/2025 2:[address] [facility] - 02/22/2025 10:10 PM EDT Over the counter supplements containing high doses of biotin may interfere with this assay. If interference is suspected, patients shoud be retested after refraining from biotin supplements for 72 hours. [facility] LAB BLOOD ORDERABLES Final Resu lt [facility] [address] [place] [address], [place] [phone] * Alpha fetoprotein tumor marker (02/22/2025 2:21 PM EDT) Pathologist [facility] AFP 3.1 0.0 - 8.0 ng/mL LAB CHEMISTRY METHOD 02/22/2025 6:[address] [facility] Blood Venous blood specimen / Unknown Venipuncture / Unknown 02/22/2025 2:21 PM EDT 02/22/2025 2:[address] [facility] - 02/22/2025 6:41 PM EDT The Siemens Advia Centaur Chemiluminescent Immunoassay is used. Results obtained with different assay methods or kits cannot be used interchangeably. Results cannot be interpreted as absolute evidence of the presence or absence of malignant disease. Louiseafshan Raman LAB BLOOD ORDERABLES Final Resu lt [facility] [address] [place] [address], [place] [phone] * Antimitochondrial antibody (02/22/2025 2:21 PM EDT) Pathologist [facility] Mitochondrial Antibody Quantitative 3.6 <=20.0 units LAB CHEMISTRY METHOD 02/28/2025 1:[address] [facility] Mitochondrial Antibody Qualitative Negative Negative LAB CHEMISTRY METHOD 02/28/2025 1:[address] [facility] Blood Venous blood specimen / Unknown Venipuncture / Unknown 02/22/2025 2:21 PM EDT 02/22/2025 2:21 PM EDT Louise Raman PLANT GUIDE LAB BLOOD ORDERABLES Final Resu lt [facility] [address] [place] [address], [place] [phone] * Lipid panel with reflex to direct LDL (02/06/2025 8:41 AM EDT) Cholesterol 136 0 - 200 mg/dL LAB CHEMISTRY METHOD 02/06/2025 1:[address] [facility] Triglycerides 83 0 - 150 mg/dL LAB CHEMISTRY METHOD 02/06/2025 1:[address] [facility] HDL 65 >=40 mg/dL LAB CHEMISTRY METHOD 02/06/2025 1:[address] [facility] LDL Calculated 54 0 - 100 mg/dL LAB CHEMISTRY METHOD 02/06/2025 1:[address] [facility] VLDL Cholesterol Roverto 16.6 mg/dL LAB CHEMISTRY METHOD 02/06/2025 1:[address] [facility] Non HDL Chol. (LDL+VLDL) 71 <145 mg/dL LAB CHEMISTRY METHOD 02/06/2025 1:[address] [facility] Chol/HDL Ratio 2.1 0.0 - 4.4 LAB CHEMISTRY METHOD 02/06/2025 1:[address] [facility] Blood Venous blood specimen / Unknown Venipuncture / Unknown 02/06/2025 8:41 AM EDT 02/06/2025 8:41 AM EDT us Elva DEVINE LAB BLOOD ORDERABLES Final Re sult Performing Organization Address [facility]/ZIP Co de Phone Number [facility] [address] [place] [address], [place] [phone] * (ABNORMAL) Microalbumin creatinine urine ratio (02/06/2025 8:41 AM EDT) Creatinine, Urine 111.0 mg/dL LAB CHEMISTRY METHOD 02/06/2025 4:[address] [facility] Microalb, Ur 29.8(H) 0.0 - 29.0 mg/L LAB CHEMISTRY METHOD 02/06/2025 4:[address] [facility] Microalb/Crea t Ratio 27 <30 mg/g creat LAB CHEMISTRY METHOD 02/06/2025 4:[address] [facility] Urine Urine specimen from urethra / Unknown Non-blood Collection / Unknown 02/06/2025 8:41 AM EDT 02/06/2025 8:41 AM EDT us Elva DEVINE LAB URINE ORDERABLES Final Re sult Performing Organization Address [facility] de Phone Number [facility] [address] [place] [address], [place] [phone] * Vitamin D 25 hydroxy (02/06/2025 8:41 AM EDT) Vit D, 25-Hydroxy 40.4 30.0 - 80.0 ng/mL LAB CHEMISTRY METHOD 02/06/2025 3:[address] [facility] Blood Venous blood specimen / Unknown Venipuncture / Unknown 02/06/2025 8:41 AM EDT 02/06/2025 8:41 AM EDT us Elva DEVINE LAB BLOOD ORDERABLES Final Re sult [facility] [address] [place] [address], [place] [phone] * (ABNORMAL) Hemoglobin A1c (02/06/2025 8:41 AM EDT) Pathologist [facility] Hemoglobin A1C 7.9(H) <6.5 % LAB CHEMISTRY METHOD 02/06/2025 1:[address] [facility] Mean Bld Glu Estim. 180 mg/dL LAB CHEMISTRY METHOD 02/06/2025 1:[address] [facility] Blood Venous blood specimen / Unknown Venipuncture / Unknown 02/06/2025 8:41 AM EDT 02/06/2025 8:41 AM EDT Elva DEVINE LAB BLOOD ORDERABLES Final Re sult [facility] [address] [place] [address], * (ABNORMAL) Comprehensive metabolic panel (02/06/2025 8:41 AM EDT) [facility] Sodium 141 133 - 145 mmol/L LAB CHEMISTRY METHOD 02/06/2025 1:[address] [facility] Potassium 4.1 3.5 - 5.5 mmol/L LAB CHEMISTRY METHOD 02/06/2025 1:[address] [facility] Chloride 105 96 - 110 mmol/L LAB CHEMISTRY METHOD 02/06/2025 1:[address] [facility] CO2 28 21 - 32 mmol/L LAB CHEMISTRY METHOD 02/06/2025 1:[address] [facility] Anion Gap 8 3 - 11 LAB CHEMISTRY METHOD 02/06/2025 1:58 PM [facility] Glucose 168(H) 70 - 100 mg/dL LAB CHEMISTRY METHOD 02/06/2025 1:[address] [facility] BUN 7 5 - 25 mg/dL LAB CHEMISTRY METHOD 02/06/2025 1:58 PM [facility] Creatinine 0.49(L) 0.50 - 1.10 mg/dL LAB CHEMISTRY METHOD 02/06/2025 1:58 PM [facility] eGFR 104 >=60 mL/min/1. 73m2 LAB CHEMISTRY METHOD 02/06/2025 1:58 PM [facility] Comment:Calculation based on the Chronic Kidney Disease Epidemiology Collaboration (CKD-EPI) equation refit without adjustment for race. BUN/Creatinine Ratio 14.3 LAB CHEMISTRY METHOD 02/06/2025 1:58 PM [facility] Calcium 9.2 8.5 - 10.5 mg/dL LAB CHEMISTRY METHOD 02/06/2025 1:58 PM [facility] AST (SGOT) 24 10 - 42 unit/L LAB CHEMISTRY METHOD 02/06/2025 1:58 PM [facility] ALT (SGPT) 31 10 - 60 unit/L LAB CHEMISTRY METHOD 02/06/2025 1:58 PM [facility] Alkaline Phosphatase 110 42 - 121 unit/L LAB CHEMISTRY METHOD 02/06/2025 1:58 PM [facility] Total Protein 7.4 6.0 - 8.0 g/dL LAB CHEMISTRY METHOD 02/06/2025 1:58 PM [facility] Albumin 3.7 3.2 - 5.0 g/dL LAB CHEMISTRY METHOD 02/06/2025 1:58 PM [facility] Total Bilirubin 0.7 0.0 - 1.4 mg/dL LAB CHEMISTRY METHOD 02/06/2025 1:58 PM [facility] Blood Venous blood specimen / Unknown Venipuncture / Unknown 02/06/2025 8:41 AM EDT 02/06/2025 8:41 AM EDT us Elva DEVINE LAB BLOOD ORDERABLES Final Re sult [facility] [address] [place] [address], * SCREENING MAMMOGRAPHY BI 2-VIEW BREAST INC [...] interpreted with the aid of computer-aided detection. Comparison is made with 10/21/2022 and 10/17/2021. Breast parenchyma is heterogeneously dense, which may obscure small masses. No new suspicious mass, architectural distortion, or suspicious [...] spine and hips were performed on a [employer] fan beam bone densitometer. Bone mineral density measurements [...] >20% for major osteoporotic fracture PLEASE NOTE: W.H.O. classification is based on lowest measured density at the spine, femoral neck, or total hip.This classification has prognostic significance when applied to post menopausal women and older men. 1) The World Health Organization defines low BMD as follows: T-score Normal at or > -1 Osteopenia < -1 and > -2.5 Osteoporosis at or < -2.5 without fractures Established osteoporosis < -2.5 with fractures Procedure Note Rip Eldridge MD - 05/15/2024 Clinical history: menopausal/postmenopausal disorder Scans of the lumbar spine and hips were performed on a [employer] beam bone densitometer. 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
== END 2025-03-14 12:55 | disposition home or self-care (01) ==
LOC: HO.HMGCX 12:54
PROVIDERS: PCP Internal Medicine; Visit Provider Internal Medicine Rheumatology
DX: M25.521 Pain in right elbow (principal); M25.561 Pain in right knee
CPT/HCPCS: 73080; 73560

== ENCOUNTER → 2025-03-14 13:03 | Outpatient (BNV) | payer OTHER, SELFPAY | PROVIDERS: PCP Internal Medicine; Visit Provider Radiology Diagnostic Radiology | DX: M25.521 Pain in right elbow (principal); M17.11 Unilateral primary osteoarthritis, right knee | CPT/HCPCS: 73080; 73560 ==

== ENCOUNTER 2025-04-03 12:03 | Outpatient (REF) | payer OTHER, SELFPAY ==
--- OUTSIDE RECORDS SUMMARY | 2025-04-03 12:56 | XMS_ITS | Clinical Summary ---
Author Organization [facility] Address [address] [place] [address] Phone Care Team Providers Care Regional Office Coordinator Name Role Phone Ashwini Zhang MD Primary Care Provider [phone] Allergies Active Allergy Reactions Criticality Noted Date [...] score 6.1% 10 year fracture risk Cirrhosis ([facility] V24, [facility] V28) 01/25/2023 Complex renal cyst 04/25/2021 [...] 10/05/2016 Diabetes mellitus type 2, un complicated ([facility] V24, [facility] V28) 12/23/2015 SLE (systemic lupus erythema tosus) ([facility] V24, [facility] V28) 07/02/2015 Colon polyps 06/11/2014 Overview (09/01/2024): 06/11/14 c-scope Constipation 02/12/2014 UPJ obstruction, congenital 11/02/2013 Thrombocytopenia ([facility] V24) 08/27/2012 Overview (06/08/2024): Noted as early as 2008 ?etiology GERD (gastroesophageal reflux disease) 2 Depression 10/21/2011 Nephrolithiasis 05/27/2009 Overview (09/01/2024): Patient had a staghorn calculus on the right kidney and she is s/p urological surgery on 05/2009. Patient follow with Urology outside [facility] 08/29 bilateral nonobstructing stones Encounters Date Type Department Care Team Description 03/13/2025 Telephone Adult Medicine [address] [phone] Ashwini Zhang MD Letter for School/Work (Jury Duty) 02/27/2025 1:09 PM EDT Anesthesia Event [facility] Endoscopy [address] [place] [phone] Roscoe Mansfield DO Slanda, Summer, CRNA 02/27/2025 11:47 AM EDT - 02/27/2025 11:59 PM EDT Hospital Encounter [facility] Endoscopy [address] [place] [phone] Timothy Carroll MD Slanda, Summer, CRNA Korobkov, Vitaliy, DO Esophageal varices (CMS/HCC V24, CMS/[facility] V28) Discharge Disposition: Home or Self Care 02/22/2025 2:00 PM EDT Office Visit Gastroenterology [facility] [address] [phone] Louise Raman NP History of esophageal varices (Primary Dx); History of cirrhosis of liver 02/22/2025 Telephone Gastroenterology [facility] 175 [facility] [address] [phone] Louise Raman NP 02/08/2025 2:45 PM EDT Office Visit Adult Medicine [address] [phone] Elva Fagan PA Type 2 diabetes mellitus without complication, without long-term current use of insulin ([facility] V24, [facility] V28) (Primary Dx); Vitamin D deficiency; Systemic lupus erythematosus, unspecified SLE type, unspecified organ involvement status ([facility] V24, [facility] V28); Overweight (BMI 25.0-29.9); Raynaud's disease without gangrene; Osteopenia, unspecified location; Primary hypertension; Gastroesophageal reflux disease, unspecified whether esophagitis present 01/16/[address] [phone] Ashwini Zhang MD Request For [...] eservative (Fluzone; Afluria) 6mo and older 07/02/2015,10/06/2012 [employer] SARS-CoV-2 COVID -19, vector-nr, rS-Ad26, preservative free [...] COMMENT: normal in 2004 ESOPHAGOGASTRODUODENOSCOPY 01/11/2009 PROCEDURE: CT ESOPHAGOGASTRODUODENOSCOPY TRANSORAL DIAGNOSTIC; COMMENT: [facility] - normal COLONOSCOPY W/ POLYPECTOMY 06/11/2014 PROCEDURE: CT COLSC FLX W/RMVL OF TUMOR POLYP LESION SNARE TQ; COMMENT: several small polyps -> serrated and tubular adenomas MULTIPLE TOOTH EXTRACTIONS PROCEDURE: HISTORICAL DENTAL EXTRACTION BREAST BIOPSY Left PROCEDURE: BX BREAST; PERC NEEDLE CORE W/IMAG GUID; COMMENT: b9 COLONOSCOPY 02/2019 PROCEDURE: HISTORICAL COLONOSCOPY; COMMENT: repeat 5 years OTHER SURGICAL HISTORY 09/2022 Bilateral PROCEDURE: MAMMOGRAM, SCREENING, BOTH BREASTS OTHER SURGICAL HISTORY 01/2013 PROCEDURE: CT ENDOSCOPY UPPER SMALL INTESTINE; COMMENT: normal upper [...] care for your loved ones. For example, early childhood services coordinator or elderly care for an older adult? [...] 2:20 PM EDT Appointment Radiology Department - [address] [phone] 05/17/2025 3:00 PM EDT Office Visit Adult Medicine South [address] [phone] Ashwini Zhang MD [address] [place] [address] 05/25/2025 1:00 PM EDT Office Visit Gastroenterology - [place] 175 [facility] 175 [facility] [address] [place] [phone] Louise Raman, HAND SPLITTER 175 [facility] [address] [place] [address] 11/20/2025 2:15 PM EST Office Visit [facility] Hematology Oncology [address] [place] [phone] Shae Arenas, DO [address] [place] [address] Health Maintenance Due Date Last Done Comments [...] Diabetes: Annual Retina Eye Exam 12/27/2024 12/28/2023 Influenza Vaccine (#1) 2025 , 06/14/2023, 07/03/2022, Additional history exists Diabetes: Blood Sugar Control Test (HGBA1C) 08/09/2025 [...] 02/09/2024, 02/09/2024 Zoster Vaccines Completed 07/03/2022, 01/02/2022 Medicare Annual Wellness Visit Discontinued 09/15/2024 Hepatitis [...] Routine 02/27/2025 1:19 PM EDT Esophageal varices ([facility]/HCC V24, [facility] V28) TISSUE EXAM Routine 02/27/2025 1:13 PM EDT Esophageal varices (CMS/HCC V24, CMS/[facility] V28) HEPATITIS A ANTIBODY IGM Routine 025 [...] for surveillance. Narrative 02/27/2025 1:17 PM EDT [facility] GI Patient Name: Venus Estrada Procedure [...] was minimal. Procedure Code(s): --- Professional --- 51259, Esophagogastroduodenoscopy, flexible, transoral; with biopsy, single or multiple Diagnosis Code(s): --- Professional --- K76.6, Portal hypertension K31.89, Other diseases of stomach and duodenum K74.60, Unspecified cirrhosis of liver CPT copyright 2020 [employer]. All rights reserved. The codes documented in this report are preliminary and upon aircraft manager review may be revised to meet current compliance requirements. Timothy Carroll MD 02/27/2025 1:17:16 PM This report has been signed electronically.Timothy Carroll MD Number of Addenda: 0 Note Initiated On: 02/27/2025 12:55 PM Scope In: Scope Out: Endoscopy Department at [facility] - [address] [place] [phone] Procedure Note Timothy Carroll MD - 02/27/2025 [facility] GI Patient Name: Venus Estrada Procedure [...] was minimal. Procedure Code(s): --- Professional --- 21956, Esophagogastroduodenoscopy, flexible, transoral; with biopsy, single or multiple Diagnosis Code(s): --- Professional --- K76.6, Portal hypertension K31.89, Other diseases of stomach and duodenum K74.60, Unspecified cirrhosis of liver CPT copyright 2020 [employer]. All rights reserved. The codes documented in this report are preliminary and upon aircraft manager reviewmay be revised to meet current compliance requirements. Timothy Carroll MD 02/27/2025 1:17:16 PM This report has been signed electronically.Timothy Carroll MD Number of Addenda: 0 Note Initiated On: 02/27/2025 12:55 PM Scope In: Scope Out: Endoscopy Department at [facility] - [address] [place] [phone] IMPRESSION: - Portal hypertensive gastropathy. Biopsied. Recommendation: [...] on H&E stain. 02/28/2025 11:12 AM EDT [facility] Gross Description A. Stomach, gastric biopsies: Labeled gastric b stomach . Received in formalin, is an approximately 0.6 cm in greatest diameter soft to rubbery, tracey-pink to red tissue fragment, which is wrapped in paper and submitted in toto in one cassette, one piece, multiple levels. hs/DG 02/28/2025 11:12 AM EDT [facility] Disclaimer Unless otherwise specified, all tissue is 10% NB formalin fixed and paraffin embedded. 02/28/2025 11:12 AM EDT [facility] Tissue Stomach structure / Unknown 02/27/2025 1:13 PM EDT 02/27/2025 2:50 PM EDT Timothy Carroll MD LAB PATHOLOGY ORDERABLES Final R esult Performing Organization Address City/[facility]/ZIP Co de Phone Number [facility] [address] [place] [address], [place] [phone] * Hepatitis C antibody (02/22/2025 2:21 PM EDT) Pathologist [facility] Hepatitis C Antibody Negative Negative LAB CHEMISTRY METHOD 02/22/2025 7:20 PM EDT [facility] Blood Venous blood specimen / Unknown Venipuncture / Unknown 02/22/2025 2:21 PM EDT 02/22/2025 2:21 PM EDT Louise Raman NP LAB BLOOD ORDERABLES Final Resu lt Performing Organization Address [facility] de Phone Number [facility] [address] [place] [address], [place] [phone] * (ABNORMAL) Hepatitis A antibody total with reflex IgM (02/22/2025 2:21 PM EDT) [facility] Hep A Total Ab Positive( A) Negative LAB CHEMISTRY METHOD 02/22/2025 7:21 PM EDT [facility] Blood Venous blood specimen / Unknown Venipuncture / Unknown 02/22/2025 2:21 PM EDT 02/22/2025 2:21 PM EDT Narrative [facility] - 02/22/2025 7:21 PM EDT Over the counter supplements containing high doses of biotin may interfere with this assay. If interference is suspected, patients shoud be retested after refraining from biotin supplements for 72 hours. us Louise Raman NP LAB BLOOD ORDERABLES Final Resu lt Performing Organization Address [facility]/ZIP Co de Phone Number [facility] [address] [place] [address], [place] [phone] * (ABNORMAL) Hepatitis B screening panel (02/22/2025 2:21 PM EDT) Hepatitis B Surface Ag Negative Negative LAB CHEMISTRY METHOD 02/22/2025 7:21 PM EDT [facility] Hep B Core Total Ab Negative Negative LAB CHEMISTRY METHOD 02/22/2025 7:21 PM EDT [facility] Hepatitis B Surface Ab Positive(A) Negative LAB CHEMISTRY METHOD 02/22/2025 7:21 PM EDT [facility] Blood Venous blood specimen / Unknown Venipuncture / Unknown 02/22/2025 2:21 PM EDT 02/22/2025 2:21 PM EDT us Louise Raman NP LAB BLOOD ORDERABLES Final Resu lt Performing Organization Address City/[facility]/ZIP Co de Phone Number [facility] [address] [place] [address], * Smooth muscle antibody IgG (02/22/2025 2:21 PM EDT) Pathologist [facility] Smooth Muscle (F-Actin) IgG Ab 7 <20 UNITS 02/26/2025 1:56 PM EDT [facility] Comment: Interpretation: Negative Test performed at [facility], [address], [place] [address] Bree Wharton MD, PhD - Cigarette Making Machine Operator Blood Venous blood specimen / Unknown Venipuncture / Unknown 02/22/2025 2:21 PM EDT 02/22/2025 2:21 PM EDT us Louise Raman HAND SPLITTER LAB BLOOD ORDERABLES Final Resu lt [facility] [address] [place], [place] [id number] * Hepatitis A antibody IgM (02/22/2025 2:21 PM EDT) Hepatitis A Antibody IgM Negative Negative LAB CHEMISTRY METHOD 02/22/2025 10:10 PM EDT [facility] Blood Venous blood specimen / Unknown Venipuncture / Unknown 02/22/2025 2:21 PM EDT 02/22/2025 2:21 PM EDT Narrative [facility] - 02/22/2025 10:10 PM EDT Over the counter supplements containing high doses of biotin may interfere with this assay. If interference is suspected, patients shoud be retested after refraining from biotin supplements for 72 hours. Louiseafshan Raman HAND SPLITTER LAB BLOOD ORDERABLES Final Resu lt [facility] [address] [place] [address], [place] [phone] * Alpha fetoprotein tumor marker (02/22/2025 2:21 PM EDT) Pathologist [facility] AFP 3.1 0.0 - 8.0 ng/mL LAB CHEMISTRY METHOD 02/22/2025 6:41 PM EDT [facility] Blood Venous blood specimen / Unknown Venipuncture / Unknown 02/22/2025 2:21 PM EDT 02/22/2025 2:21 PM EDT Narrative [facility] - 02/22/2025 6:41 PM EDT The Siemens Advia Centaur Chemiluminescent Immunoassay is used. Results obtained with different assay methods or kits cannot be used interchangeably. Results cannot be interpreted as absolute evidence of the presence or absence of malignant disease. Louise Raman NP LAB BLOOD ORDERABLES Final Resu lt [facility] [address] [place] [address], [place] [phone] * Antimitochondrial antibody (02/22/2025 2:21 PM EDT) Pathologist [facility] Mitochondrial Antibody Quantitative 3.6 <=20.0 units LAB CHEMISTRY METHOD 02/28/2025 1:14 PM EDT [facility] Mitochondrial Antibody Qualitative Negative Negative LAB CHEMISTRY METHOD 02/28/2025 1:14 PM EDT [facility] Blood Venous blood specimen / Unknown Venipuncture / Unknown 02/22/2025 2:21 PM EDT 02/22/2025 2:21 PM EDT Louise Raman HAND SPLITTER LAB BLOOD ORDERABLES Final Resu lt [facility] [address] [place] [address], [place] [phone] * Lipid panel with reflex to direct LDL (02/06/2025 8:41 AM EDT) Cholesterol 136 0 - 200 mg/dL LAB CHEMISTRY METHOD 02/06/2025 1:58 PM EDT [facility] Triglycerides 83 0 - 150 mg/dL LAB CHEMISTRY METHOD 02/06/2025 1:58 PM EDT [facility] HDL 65 >=40 mg/dL LAB CHEMISTRY METHOD 02/06/2025 1:58 PM EDT [facility] LDL Calculated 54 0 - 100 mg/dL LAB CHEMISTRY METHOD 02/06/2025 1:58 PM T [facility] VLDL Cholesterol Roverto 16.6 mg/dL LAB CHEMISTRY METHOD 02/06/2025 1:58 PM EDT [facility] Non HDL Chol. (LDL+VLDL) 71 <145 mg/dL LAB CHEMISTRY METHOD 02/06/2025 1:58 PM EDT [facility] Chol/HDL Ratio 2.1 0.0 - 4.4 LAB CHEMISTRY METHOD 02/06/2025 1:58 PM [facility] Blood Venous blood specimen / Unknown Venipuncture / Unknown 02/06/2025 8:41 AM EDT 02/06/2025 8:41 AM EDT us Elva DEVINE LAB BLOOD ORDERABLES Final Re sult Performing Organization Address [facility]/ZIP Co de Phone Number [facility] [address] [place] [address], [place] [phone] * (ABNORMAL) Microalbumin creatinine urine ratio (02/06/2025 8:41 AM EDT) Creatinine, Urine 111.0 mg/dL LAB CHEMISTRY METHOD 02/06/2025 4:06 PM EDT [facility] Microalb, Ur 29.8(H) 0.0 - 29.0 mg/L LAB CHEMISTRY METHOD 02/06/2025 4:06 PM EDT [facility] Microalb/Crea t Ratio 27 <30 mg/g creat LAB CHEMISTRY METHOD 02/06/2025 4:06 PM EDT [facility] Urine Urine specimen from urethra / Unknown Non-blood Collection / Unknown 02/06/2025 8:41 AM EDT 02/06/2025 8:41 AM EDT us Elva DEVINE LAB URINE ORDERABLES Final Re sult Performing Organization Address [facility]/ZIP Co de Phone Number [facility] [address] [place] [address], [place] [phone] * Vitamin D 25 hydroxy (02/06/2025 8:41 AM EDT) Vit D, 25-Hydroxy 40.4 30.0 - 80.0 ng/mL LAB CHEMISTRY METHOD 02/06/2025 3:08 PM EDT [facility] Blood Venous blood specimen / Unknown Venipuncture / Unknown 02/06/2025 8:41 AM EDT 02/06/2025 8:41 AM EDT us Elva DEVINE LAB BLOOD ORDERABLES Final Re sult Performing Organization Address City/[facility]/ZIP Co de Phone Number [facility] [address] [place] [address], [place] [phone] * (ABNORMAL) Hemoglobin A1c (02/06/2025 8:41 AM EDT) Hemoglobin A1C 7.9(H) <6.5 % LAB CHEMISTRY METHOD 02/06/2025 1:53 PM EDT [facility] Mean Bld Glu Estim. 180 mg/dL LAB CHEMISTRY METHOD 02/06/2025 1:53 PM EDT [facility] Blood Venous blood specimen / Unknown Venipuncture / Unknown 02/06/2025 8:41 AM EDT 02/06/2025 8:41 AM EDT Elva DEVINE LAB BLOOD ORDERABLES Final Re sult Performing Organization Address [facility]/ZIP Co de Phone Number [facility] [address] [place] [address], [place] [phone] * (ABNORMAL) Comprehensive metabolic panel (02/06/2025 8:41 AM EDT) [facility] Sodium 141 133 - 145 mmol/L LAB CHEMISTRY METHOD 02/06/2025 1:58 PM EDT [facility] Potassium 4.1 3.5 - 5.5 mmol/L LAB CHEMISTRY METHOD 02/06/2025 1:58 PM EDT [facility] Chloride 105 96 - 110 mmol/L LAB CHEMISTRY METHOD 02/06/2025 1:58 PM EDT [facility] CO2 28 21 - 32 mmol/L LAB CHEMISTRY METHOD 02/06/2025 1:58 PM EDT [facility] Anion Gap 8 3 - 11 LAB CHEMISTRY METHOD 02/06/2025 1:58 PM EDT [facility] Glucose 168(H) 70 - 100 mg/dL LAB CHEMISTRY METHOD 02/06/2025 1:58 PM [facility] BUN 7 5 - 25 mg/dL LAB CHEMISTRY METHOD 02/06/2025 1:58 PM [facility] Creatinine 0.49(L) 0.50 - 1.10 mg/dL LAB CHEMISTRY METHOD 02/06/2025 1:58 PM [facility] eGFR 104 >=60 mL/min/1. 73m2 LAB CHEMISTRY METHOD 02/06/2025 1:58 PM [facility] Comment:Calculation based on the Chronic Kidney Disease Epidemiology Collaboration (CKD-EPI) equation refit without adjustment for race. BUN/Creatinine Ratio 14.3 LAB CHEMISTRY METHOD 02/06/2025 1:58 PM [facility] Calcium 9.2 8.5 - 10.5 mg/dL LAB CHEMISTRY METHOD 02/06/2025 1:58 PM [facility] AST (SGOT) 24 10 - 42 unit/L LAB CHEMISTRY METHOD 02/06/2025 1:58 PM [facility] ALT (SGPT) 31 10 - 60 unit/L LAB CHEMISTRY METHOD 02/06/2025 1:58 PM [facility] Alkaline Phosphatase 110 42 - 121 unit/L LAB CHEMISTRY METHOD 02/06/2025 1:58 PM [facility] Total Protein 7.4 6.0 - 8.0 g/dL LAB CHEMISTRY METHOD 02/06/2025 1:58 PM [facility] Albumin 3.7 3.2 - 5.0 g/dL LAB CHEMISTRY METHOD 02/06/2025 1:58 PM [facility] Total Bilirubin 0.7 0.0 - 1.4 mg/dL LAB CHEMISTRY METHOD 02/06/2025 1:58 PM [facility] Blood Venous blood specimen / Unknown Venipuncture / Unknown 02/06/2025 8:41 AM EDT 02/06/2025 8:41 AM EDT us Elva DEVINE LAB BLOOD ORDERABLES Final Re sult [facility] [address] [place] [address], * SCREENING MAMMOGRAPHY BI 2-VIEW BREAST INC [...] spine and hips were performed on a [employer] fan beam bone densitometer. Bone mineral density [...] spine and hips were performed on a [employer] beam bone densitometer. Bone mineral density measurements [...] Most Recently Relevant to Health Maintenance Insurance [facility] MEDICARE Member Subscriber Plan / Payer (Ef fective 2023-Present) Name:Venus Estrada Relation to Subscriber:Self Name:Venus Estrada Payer ID:[id number] Group ID:[id number] Type:Not on file Address: [facility] [address] [address] Advance Directives Documents on File Type Date Recorded Patient Environmental Safety Specialist Expl anation Health Care Decision (hx) 01/27/2023 [...] (hx) 03/20/2019 AD STRATTON DIRECTIVE Care Teams Regional Office Coordinator Relationship Specialty Start Date End Date Ashwini Zhang MD [address] [place] [address] PCP - General Internal Medicine 03/06/21
--- OUTSIDE RECORDS SUMMARY | 2025-04-03 12:56 | XMS_ITS | Data Portability ---
Author Organization [email or web address] Address [address] [place] [address] Care Team Providers Care Dental Associate Name Role Phone HIM CCA OTHER Assessment Encounter Date Assessment Date Assessment LastModified by Organization Details LastModified Time 09/11/2024 09/11/2024 I provided real -time medical direction via phone for this encounter and was available for additional phone-based assistance as needed. I have reviewed and agree with the Assessment and Plan as documented by the Hiv Prevention Specialist. Patient given the opportunity to ask questions. [...] her blood pressure cuff readings with the park services specialist on the scene. Per park services specialist on the scene, diastolic elevated and patient's [...] Name and Address Organization Details Recorded Time 85263 acetamino phen / oxycodone medicatio n Not available Not available Not available 09/11/2024 96318 3 RxNorm Not Available [email or web address] [facility] 4 14:06:15 03282 naproxen medicatio n Not available Not available Not available 09/11/2024 7258 RxNorm Not Available [employer] 4 14:06:15 Medications Name Sig Start Date [...] Respiratory rate Body temperature Body weight Systolic And Diastolic Provider Name and Address Organization Details Last Updated DateTime 4 104 /min 99 % 99 % 152.4 cm 16 /min 98.4 [degF] 93501.9 2 g 154/94 mm[Hg] Not Available [facility] - production 4 [...] SNOMED-CT Code Diagnosis ICD10 Code Diagnosis Note [id number] Amy Timmons MD Main - [facility] [address] [place] [phone] 09/11/2024 18:15:47 09/11/2024 21:15:07 Essential hypertension [id number] I10 Health Concerns Section Related Observation LastModified by Organization Detai ls LastModified Time None Recorded Concern Status LastModified by Organization Details LastModified Time None Recorded Advance Directives Directive None Recorded Payers Insurance Date Sequence Insurance Name Policy Number Policy Leiva Covered Member ID Leiva Member ID Guarantor Name 09/11/2024 1 [facility] - DOS ON OR AFTER 2022 - DUAL ELIGIBLE - ALF OPTIONS AND ONE CARE (MEDICARE REPLACEMENT/ADV ANTAGE - HMO) Venus Estrada [id number] Venus Estrada Notes Date Note Type Note [...] and or arm Diaphoretic/Sweati ng Describes as crushing Sudden onset of nausea/Vomiting and shortness of breath. Unable to speak in full sentences without distress Palpitations, feeling dizzy Chest pain, increased fatigue Chief Complaints: Hypotension PMH: Hypertension, Thrombocytopenia, Cirrhosis Comments: Busser verified the name//address and phone number. Call completed with asphalt distributor operator > Pt calling for high BP . [...] .................. .................. .................. .................. .................. .................. ............... Hiv Prevention Specialist Note From Luis Manning: Smartcare visit for female pt. Pt presents complaining of high blood pressure readings on her home machine. Pt has had occasional headaches but no other symptoms reported. Pt recently switched on to amlodipine for HTN. Follow up scheduled for 4 days from now. V/S taken as listed with hypertension noted. Pt afebrile. Lung sounds clear bilaterally. Consulted with [facility] Dr. Timmons who advised no treatments needed at this time. Reviewed red flags for ED. Pt education provided. .................. .................. .................. .................. .................. .................. .................. ............... [facility] Consulted: Amy Timmons .................. .................. .................. .................. .................. .................. .................. ............... Disposition: Fulfilled Amy Timmons MD [address] [facility], [place], [address], [employer] 09/11/2024 18:18:27 OBGyn Episode No OBEpisode recorded.
--- OUTSIDE RECORDS SUMMARY | 2025-04-03 12:56 | XMS_ITS | Clinical Summary ---
Author Organization [facility] Address [address] [place] [address] Care Team Providers Care Firer Retort Name Role Phone Ashwini Zhang MD Primary Care Provider [phone] Allergies Active Allergy Reactions Criticality Noted Date [...] as prescribed. Daily sun protection. Follow with clay caster regularly-at least every 12 months. Raynaud's disease [...] on 05/2009. Patient follow with Urology outside [facility] Social History Tobacco Use Types Packs/Day [...] 86 11/11/2023 1:55 PM EST Temperature 36.4 C (97.6 F) 11/11/2023 1:55 PM EST Respiratory Rate - - Oxygen Saturation 100% [...] season) 2024 08/29/2021, 01/03/2021 Influenza Vaccine (#1) 2025 , 07/03/2022, 10/26/2019, Additional history exists RSV Adult > 60+ Yrs or (1 - 1-dose 75+ series) 2033 Shingrix-Zoster Vaccine Completed 07/03/2022, 01/02 Hepatitis B Vaccines Aged Out No long er eligible based on patient's age to complete this topic RSV Ped < 20 months Aged Out No longe r eligible based on patient's age to complete this topic Care Teams Firer Retort Relationship Specialty Start Date End Date Ashwini Zhang MD PCP - General Internal Medicine 04/07/22
[2025-04-03 15:07] LABS: MANUAL DIFF FLAG NO
[2025-04-03 15:16] LABS: Hematocrit 38.0 % (37.0-47.0); Hemoglobin 13.3 g/dl (12.0-16.0); Imm Gran Abs Auto 0.01 X10*3/uL (0.00-0.03); Imm Gran Pct Auto 0.2 % (0.0-0.4); Lymphocytes Absolute Auto 1.5 X10*3/uL (1.2-4.9); Mean Corpuscular HGB Conc 35.0 g/dl (31.0-35.0); Mean Corpuscular Hemoglobin 29.0 pg (27.0-33.0); Mean Corpuscular Volume 83.0 fL (80.0-98.0); NRBC Abs Auto 0.000 X10*3/uL (0.0-0.012); NRBC Pct Auto 0.0 /100WBC (0.0-0.2); Red Blood Count 4.58 X10*6/uL (4.20-5.50); White Blood Count 5.1 X10*3/uL (4.8-10.8)
[2025-04-03 15:37] LABS: Platelet Count 90 X10*3/uL (160-400)
== END 2025-04-03 12:04 | disposition home or self-care (01) ==
LOC: HO.HKASLDS 12:03
PROVIDERS: Visit Provider Internal Medicine Rheumatology
DX: Z79.60 Long term (current) use of unspecified immunomodulators and immunosuppressants (principal)
CPT/HCPCS: 36415; 85025

== ENCOUNTER 2025-06-13 13:22 | Outpatient (AMB) | payer OTHER, SELFPAY ==
[2025-06-13 13:33] VITALS: BP 140/90; PULSE 87; O2SAT 98
--- NOTE | 2025-06-13 13:33 | MHC.OFFVIS ---
Vital Signs 06/13/25 13:33 Weight 131 lb 13.383 oz BP 140/90 H Blood Pressure Location Rt brachial Position Sitting Pulse 87 Pulse Source Pulse Oximeter Pulse Oximetry (%) 98 Oxygen Delivery Method Room Air Intake Visit Reasons: 3 Months Intake Note: Patient presents for follow up on lupus and arthritis. Accompanied by: Self / Same As Patient Allergies acetaminophen (From Percocet) Allergy (Mild, Verified 03/13/25 12:44) Rash naproxen Allergy (Mild, Verified 03/13/25 12:44) bleeding oxycodone (From Percocet) Allergy (Mild, Verified 03/13/25 12:44) Rash HPI HPI 3 Months: Details: She was treated for H.pylori a month ago and COVID-19 2 weeks ago. Recovered. She has intermittent foot pain. Denies fevers, myalgias, hairloss, rash, discoloration of finger tips. +dry eyes and dry mouth. She continues to have loss of taste. [facility] Medical History T2DM (type 2 diabetes mellitus) Physical Exam Vital Signs: Last Vital Signs Pulse 87 06/13/25 13:33 BP 140/90 H 06/13/25 13:33 Pulse Ox 98 06/13/25 13:33 Oxygen Delivery Method Room Air 06/13/25 13:33 Const Other: General: Comfortable CVS: RRR Respiratory: clear to auscultation bilaterally. Good respiratory effort Skin: No lesions seen, no discoloration of fingertips MSK: No tenderness of any joint. No synovitis. Normal range of motion of upper extremities and lower extremities. Assessment & Plan Assessment & Plan (1) Systemic lupus erythematosus: Comment: Controlled on hydroxychloroquine 200 mg daily. Chronic thrombocytopenia likely due to ITP/SLE. Thrombocytopenia has been downtrending to 90 000 03/2025. We discussed signs and symptoms to monitor in setting of worsening thrombocytopenia. Rheumatology history: She was diagnosed with systemic lupus erythematosus in 2013, positive SOCIAL SERVICE COORDINATOR antibody, manifesting with chronic thrombocytopenia, malar rash, photosensitivity hair loss, and joint pain. Joint pain improved on hydroxychloroquine. Hydroxychloroquine 400 mg q.day cause headaches. She remains on hydroxychloroquine 200 mg daily since 2018. Code(s): M32.9 - Systemic lupus erythematosus, unspecified Category: Medical Qualifiers: Systemic lupus erythematosus type: unspecified Systemic lupus erythematosus organ involvement: unspecified Qualified Code(s): M32.9 - Systemic lupus erythematosus, unspecified Plan: Labs for disease and drug monitoring ordered Continue hydroxychloroquine 200 mg daily. OCT and visual field test okay 12/2024 Return to clinic in 3 months (2) Other long-term (current) drug therapy: Code(s): Z79.899 - Other long-term (current) drug therapy Category: Medical Plan: See above (3) Sicca syndrome: Code(s): M35.00 - Sjogren syndrome, unspecified Category: Medical Plan: SSA and SSB antibody ordered to evaluate for secondary Sjogren syndrome Orders: Orders Erythrocyte Sedimentation Rate Today M32.9 - Systemic lupus erythematosus, unspecified Alanine Aminotransferase Today M32.9 - Systemic lupus erythematosus, unspecified Complement C3 Today M32.9 - Systemic lupus erythematosus, unspecified Aspartate Amino Transferase Today M32.9 - Systemic lupus erythematosus, unspecified Creatinine Today M32.9 - Systemic lupus erythematosus, unspecified Anti DNA DS Antibody Today M32.9 - Systemic lupus erythematosus, unspecified UA ClnCatch+Micro w/rflx Cult Today M32.9 - Systemic lupus erythematosus, unspecified Complete Blood Count Auto Diff Today M32.9 - Systemic lupus erythematosus, unspecified Protein Creatinine Ratio, Ur Today M32.9 - Systemic lupus erythematosus, unspecified Complement C4 Today M32.9 - Systemic lupus erythematosus, unspecified C Reactive Protein Today M32.9 - Systemic lupus erythematosus, unspecified Sjogren's Antibodies Today M35.00 - Sjogren syndrome, unspecified Medications: Refilled hydroxychloroquine 200 mg PO DAILY 90 tabs 1RF Coding Level of Care Code Est Pt Level 4 (42077) Complex EM visit Add On G2211 Diagnoses Systemic lupus erythematosus, unspecified SLE type, unspecified organ involvement status M32.9 Systemic lupus erythematosus type: unspecified Systemic lupus erythematosus organ involvement: unspecified Other long-term (current) drug therapy Z79.899 Sicca syndrome M35.00
--- OUTSIDE RECORDS SUMMARY | 2025-06-13 17:16 | XMS_ITS | Clinical Summary ---
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 Daily sun protection. Follow with relations director regularly-at least every 12 months. Raynaud's disease [...] on 05/2009. Patient follow with Urology outside [facility] Social History Tobacco Use Types Packs/Day [...] Screening (DEXA Scan) 2023 COVID-19 Vaccine ( - season) 2025 08/29/2021, 01/03/2021 Influenza Vaccine (#1) 2025 3, 07/03/2022, 10/26/2019, Additional history exists RSV Adult > 60+ Yrs or (1 - 1-dose 75+ series) 2033 Shingrix-Zoster Vaccine Completed 07/03/2022, 01/02 Hepatitis B Vaccines Aged Out No long er eligible based on patient's age to complete this topic RSV Ped < 20 months Aged Out No longe r eligible based on patient's age to complete this topic Care Teams Handmade Tile Artist Relationship Specialty Start Date End Date Ashwini Zhang MD PCP - General Internal Medicine 04/07/22
== END 2025-06-13 14:03 | disposition home or self-care (01) ==
LOC: HO.RHES 13:23
PROVIDERS: PCP Internal Medicine; Visit Provider Internal Medicine Rheumatology
DX: M32.9 Systemic lupus erythematosus, unspecified (principal); Z79.899 Other long term (current) drug therapy; M35.00 Sjogren syndrome, unspecified
CPT/HCPCS: 99214; G2211

== ENCOUNTER 2025-06-13 13:22 | Outpatient (REF) | payer OTHER, SELFPAY ==
[2025-06-13 18:28] LABS: Appearance Urine Cloudy; Glucose Urine UA >=1000 mg/dL (Negative); PH 6.0 (5.0-9.0); Specific Gravity - Urine >= 1.030 (1.005-1.025); UMIC TRIGGER UACC YES
[2025-06-13 18:28] LABS: MANUAL DIFF FLAG NO
[2025-06-13 18:30] LABS: Hematocrit 39.1 % (37.0-47.0); Hemoglobin 13.6 g/dl (12.0-16.0); Imm Gran Abs Auto 0.01 X10*3/uL (0.00-0.03); Imm Gran Pct Auto 0.2 % (0.0-0.4); Lymphocytes Absolute Auto 1.5 X10*3/uL (1.2-4.9); Mean Corpuscular HGB Conc 34.8 g/dl (31.0-35.0); Mean Corpuscular Hemoglobin 28.8 pg (27.0-33.0); Mean Corpuscular Volume 82.7 fL (80.0-98.0); NRBC Abs Auto 0.000 X10*3/uL (0.0-0.012); NRBC Pct Auto 0.0 /100WBC (0.0-0.2); Platelet Count 103 X10*3/uL (160-400); Red Blood Count 4.73 X10*6/uL (4.20-5.50); White Blood Count 4.8 X10*3/uL (4.8-10.8)
[2025-06-13 18:45] LABS: Alanine Aminotransferase 34 U/L (0-31); Aspartate Amino Transferase 39 U/L (5-31); Estimated Glomerular Filt Rate > 60
[2025-06-13 18:57] LABS: Protein/Creatinine Ratio, Ur 0.08 (<0.2); Total Protein Urine Random 13 mg/dL (<12)
[2025-06-14 20:53] LABS: Antibody to SS-A Antigen <1.0 NEG AI (<1.0 NEG); Antibody to SS-B Antigen <1.0 NEG AI (<1.0 NEG)
== END 2025-06-13 13:23 | disposition home or self-care (01) ==
LOC: HO.HKASLDS 13:22
PROVIDERS: PCP Internal Medicine; Visit Provider Internal Medicine Rheumatology
DX: M32.9 Systemic lupus erythematosus, unspecified (principal); M35.00 Sjogren syndrome, unspecified; D69.6 Thrombocytopenia, unspecified; Z79.899 Other long term (current) drug therapy
CPT/HCPCS: 36415; 81001; 82565; 82570; 84156; 84450; 84460; 85025; 85652; 86140; 86160; 86225; 86235; 99212